=== PATIENT | female | born 1945 | race Caucasian/White ===

== ENCOUNTER → 2016-07-08 | Outpatient (REF) | payer MEDICARE ==
[~2016-07-08] MED LIST: /BISO10TA OR; /GLYB5TA; /PANT40TA PO; ALDA25TA2 OR; ASPI81TA85 PO; ATROVENT0.02% INH; BISO10TA2 OR; CARA1SUS PO; CIME400T PO; COLA50CA3 PO; COLC0.6T; COZA100T OR; DIGO0.126 OR; ECOT325T5 PO; ENDOCET; FERR140T PO; FURO20TA2; GLUC500T PO; HYZAAR PO; K-TA10TA OR; LANTUS SOLOSTAR SC; LASI80TA OR; LIDO5DIS; NEUR100C; NEUR300C; PLAV75TA2; POTA20PO4 PO; PRAD75CA3 PO; PRED5TAB OR; PREG50CA OR; ROSU10TA PO; SYNT25TA PO; TOPR100T; TYLE325T5 PO; VITA-121 PO; VITA100L PO; XOPE1.252 IN; ZEST20TA4
[2016-07-08 17:39] LABS: CALCIUM LEVEL 9.6 MG/DL (8.8-10.2); CREATININE FOR GFR 1.31 MG/DL (0.55-1.02); GLOMERULAR FILTRATION RATE 42.7 (>39); POTASSIUM SERUM 4.4 MEQ/L (3.5-5.1)
[2016-07-08 19:02] LABS: MEAN CORPUSCULAR HEMOGLOBIN 25.5 pg (27.0-33.0); MEAN CORPUSCULAR HGB CONC 29.8 g/dl (32.0-36.5); MEAN CORPUSCULAR VOLUME 85.7 fl (80.0-96.0); RED CELL DISTRIBUTION WIDTH 16.7 % (11.5-14.5)
== END ==
LOC: M SFHCCLAY 11:43
PROVIDERS: ATTEND Family Medicine
DX: I48.2 Chronic atrial fibrillation (principal); I50.20 Unspecified systolic (congestive) heart failure; Z95.1 Presence of aortocoronary bypass graft

== ENCOUNTER → 2016-07-14 | Outpatient (CLI) | payer MEDICARE ==
--- NOTE | 2016-07-14 14:26 | REP ---
CT LUMBAR SPINE WITHOUT CONTRAST: HISTORY: Spinal stenosis. There is no disc bugle or herniation at the L1-2 level. The L1 nerves exit the neural foramina without compression. A diffuse disc bulge is present at the L2-3 level. There is hypertrophy of the ligamenta flava and posterior articulating facets. These findings produce minimal central canal stenosis. The L2 nerves exit the neural foramina without compression. A diffuse disc bulge is present at the L3-4 level. There is hypertrophy of the ligamenta flava and posterior articulating facets. These findings produce mild central canal stenosis. The L3 nerves exit the neural foramina without compression. A diffuse disc bulge is present at the L4-5 level. There is hypertrophy of the ligamenta flava and posterior articulating facets. These findings produce mild central canal stenosis. The L4 nerves exit the neural foramina without compression. A diffuse disc bulge is present at the L5-S1 level. There is minimal compression of the thecal sac. There is hypertrophy of posterior articulating facets. The L5 nerves exit the neural foramina without compression. The L3-4 through L5-S1 intervertebral discs are decreased in height consistent with disc degeneration. There is no subluxation. IMPRESSION: 1. Minimal central canal stenosis at the L2-3 level secondary to disc bulge, ligamentous, and facet hypertrophy. 2. Mild central canal stenosis at the L3-4 and L4-5 level secondary to disc bulge, ligamentous, and facet hypertrophy. 3. Diffuse disc bulge at the L5-S1 level with minimal thecal sac compression. Signed by Johnny Landa MD 07/14/2016 02:35 P
== END ==
LOC: M RAD 12:44
PROVIDERS: ATTEND Family Medicine
DX: M48.06 Spinal stenosis, lumbar region (principal); M51.26 Other intervertebral disc displacement, lumbar region; M51.27 Other intervertebral disc displacement, lumbosacral region

== ENCOUNTER → 2017-01-15 | Outpatient (CLI) | payer MEDICARE ==
--- NOTE | 2017-01-15 12:27 | REP ---
CHEST, TWO VIEWS: HISTORY: Congestive heart failure. COMPARISON: 07/25/2013 An increase in interstitial markings is present in the lungs. The cardiac silhouette is enlarged. The pulmonary vasculature is prominent. Degenerative change is present in the thoracic spine. A cardiac pacemaker is present. IMPRESSION: Findings consistent with congestive heart failure.
== END ==
LOC: M CLY 11:43
PROVIDERS: ATTEND Family Medicine
DX: I50.20 Unspecified systolic (congestive) heart failure (principal)
CPT/HCPCS: 71020; 80048; 83880; 85027; G0463

== ENCOUNTER → 2017-01-15 | Outpatient (REF) | payer MEDICARE ==
[2017-01-15 17:34] LABS: CALCIUM LEVEL 9.3 MG/DL (8.8-10.2); CREATININE FOR GFR 1.43 MG/DL (0.55-1.02); GLOMERULAR FILTRATION RATE 38.6 (>39); POTASSIUM SERUM 4.6 MEQ/L (3.5-5.1)
[2017-01-15 17:40] LABS: MEAN CORPUSCULAR HEMOGLOBIN 30.3 pg (27.0-33.0); MEAN CORPUSCULAR HGB CONC 31.5 g/dl (32.0-36.5); MEAN CORPUSCULAR VOLUME 96.1 fl (80.0-96.0); RED CELL DISTRIBUTION WIDTH 15.8 % (11.5-14.5); WHITE BLOOD COUNT 5.8 K/mm3 (4.0-10.0)
== END ==
LOC: M SFHCCLAY 11:24
PROVIDERS: ATTEND Family Medicine
DX: I50.20 Unspecified systolic (congestive) heart failure (principal); R06.09 Other forms of dyspnea

== ENCOUNTER → 2017-04-17 | Outpatient (REF) | payer MEDICARE ==
[2017-04-17 16:20] LABS: MEAN CORPUSCULAR HEMOGLOBIN 29.6 pg (27.0-33.0); MEAN CORPUSCULAR HGB CONC 29.8 g/dl (32.0-36.5); MEAN CORPUSCULAR VOLUME 99.2 fl (80.0-96.0); PLATELET COUNT, AUTOMATED 238 10^3/uL (150-450); RED CELL DISTRIBUTION WIDTH 15.7 % (11.5-14.5); WHITE BLOOD COUNT 4.8 10^3/uL (4.0-10.0)
[2017-04-17 17:03] LABS: CALCIUM LEVEL 8.9 MG/DL (8.8-10.2); CREATININE FOR GFR 1.23 MG/DL (0.55-1.02); POTASSIUM SERUM 4.4 MEQ/L (3.5-5.1)
== END ==
LOC: M SFHCCLAY 13:02
PROVIDERS: ATTEND Family Medicine
DX: I50.20 Unspecified systolic (congestive) heart failure (principal); Z23 Encounter for immunization; Z95.1 Presence of aortocoronary bypass graft
CPT/HCPCS: 80048; 84443; 85027; 90662; 90732; 99497; G0008; G0009; G0463

== ENCOUNTER → 2017-06-10 | Outpatient (REF) | payer MEDICARE ==
[2017-06-10 17:33] LABS: FREE T4 1.09 NG/DL (0.76-1.46)
== END ==
LOC: M SFHCCLAY 11:37
DX: E03.9 Hypothyroidism, unspecified (principal)
CPT/HCPCS: 84443

== ENCOUNTER → 2017-07-29 | Outpatient (REF) | payer MEDICARE ==
[2017-07-30 12:11] LABS: HEMATOCRIT 31.8 % (36.0-47.0); HEMOGLOBIN 9.6 g/dl (12.0-16.0); MEAN CORPUSCULAR HEMOGLOBIN 29.8 pg (27.0-33.0); MEAN CORPUSCULAR HGB CONC 30.2 g/dl (32.0-36.5); MEAN CORPUSCULAR VOLUME 98.8 fl (80.0-96.0); PLATELET COUNT, AUTOMATED 221 10^3/uL (150-450); RED BLOOD COUNT 3.22 10^6/uL (4.00-5.40); RED CELL DISTRIBUTION WIDTH 17.2 % (11.5-14.5); WHITE BLOOD COUNT 5.9 10^3/uL (4.0-10.0)
[2017-07-30 12:17] LABS: ANION GAP 10 MEQ/L (8-16); BLOOD UREA NITROGEN 27 MG/DL (7-18); CALCIUM LEVEL 8.5 MG/DL (8.8-10.2); CARBON DIOXIDE LEVEL 22 MEQ/L (21-32); CHLORIDE LEVEL 112 MEQ/L (98-107); CREATININE FOR GFR 1.26 MG/DL (0.55-1.30); GLOMERULAR FILTRATION RATE 44.6 (>39); GLUCOSE, FASTING 121 MG/DL (70-100); POTASSIUM SERUM 4.3 MEQ/L (3.5-5.1); SODIUM LEVEL 144 MEQ/L (136-145)
== END ==
LOC: M SFHCCLAY 14:59
DX: K55.9 Vascular disorder of intestine, unspecified (principal)
CPT/HCPCS: 80048

== ENCOUNTER → 2017-08-18 | Outpatient (REF) | payer MEDICARE | LOC: M SFHCCLAY 15:38 | DX: R35.0 Frequency of micturition (principal) | CPT/HCPCS: 87088; 87186 ==

== ENCOUNTER → 2017-09-24 | Outpatient (REF) | payer MEDICARE ==
[2017-09-25 11:32] LABS: HEMATOCRIT 37.5 % (36.0-47.0); HEMOGLOBIN 11.4 g/dl (12.0-15.5); MEAN CORPUSCULAR HEMOGLOBIN 29.2 pg (27.0-33.0); MEAN CORPUSCULAR HGB CONC 30.4 g/dl (32.0-36.5); MEAN CORPUSCULAR VOLUME 96.2 fl (80.0-96.0); PLATELET COUNT, AUTOMATED 282 10^3/uL (150-450); RED CELL DISTRIBUTION WIDTH 18.3 % (11.5-14.5); WHITE BLOOD COUNT 4.5 10^3/uL (4.0-10.0)
[2017-09-25 12:08] LABS: ANION GAP 7 MEQ/L (8-16); BLOOD UREA NITROGEN 34 MG/DL (7-18); CALCIUM LEVEL 8.3 MG/DL (8.8-10.2); CARBON DIOXIDE LEVEL 27 MEQ/L (21-32); CHLORIDE LEVEL 108 MEQ/L (98-107); CREATININE FOR GFR 1.46 MG/DL (0.55-1.30); GLOMERULAR FILTRATION RATE 37.6 (>39); GLUCOSE, FASTING 116 MG/DL (70-100); SODIUM LEVEL 142 MEQ/L (136-145)
== END ==
LOC: M SFHCCLAY 14:38
DX: E11.21 Type 2 diabetes mellitus with diabetic nephropathy (principal); I50.20 Unspecified systolic (congestive) heart failure
CPT/HCPCS: 84443

== ENCOUNTER → 2017-12-22 | Outpatient (CLI) | payer MEDICARE | LOC: M CLY 15:55 | DX: I51.7 Cardiomegaly (principal); J90 Pleural effusion, not elsewhere classified; I70.0 Atherosclerosis of aorta; E03.9 Hypothyroidism, unspecified; Z95.0 Presence of cardiac pacemaker; I50.20 Unspecified systolic (congestive) heart failure; M81.0 Age-related osteoporosis without current pathological fracture | CPT/HCPCS: 71046; 84443 ==

== ENCOUNTER → 2017-12-22 | Outpatient (REF) | payer MEDICARE ==
[2017-12-23 11:47] LABS: HEMATOCRIT 40.4 % (36.0-47.0); HEMOGLOBIN 13.1 g/dl (12.0-15.5); MEAN CORPUSCULAR HEMOGLOBIN 31.8 pg (27.0-33.0); MEAN CORPUSCULAR HGB CONC 32.4 g/dl (32.0-36.5); MEAN CORPUSCULAR VOLUME 98.1 fl (80.0-96.0); PLATELET COUNT, AUTOMATED 242 10^3/uL (150-450); RED BLOOD COUNT 4.12 10^6/uL (4.00-5.40); RED CELL DISTRIBUTION WIDTH 16.1 % (11.5-14.5); WHITE BLOOD COUNT 4.8 10^3/uL (4.0-10.0)
[2017-12-23 12:16] LABS: TOTAL 25(OH) VITAMIN D 45.4 NG/ML (30.0-100.0)
[2017-12-23 12:52] LABS: ANION GAP 10 MEQ/L (8-16); BLOOD UREA NITROGEN 37 MG/DL (7-18); CALCIUM LEVEL 8.5 MG/DL (8.8-10.2); CARBON DIOXIDE LEVEL 26 MEQ/L (21-32); CHLORIDE LEVEL 106 MEQ/L (98-107); FREE T4 1.21 NG/DL (0.76-1.46); GLOMERULAR FILTRATION RATE 36.4 (>39); GLUCOSE, FASTING 114 MG/DL (70-100); POTASSIUM SERUM 4.6 MEQ/L (3.5-5.1); SODIUM LEVEL 142 MEQ/L (136-145)
== END ==
LOC: M SFHCCLAY 15:39
DX: E03.9 Hypothyroidism, unspecified (principal); I50.20 Unspecified systolic (congestive) heart failure; M81.0 Age-related osteoporosis without current pathological fracture
CPT/HCPCS: 84443

== ENCOUNTER → 2018-05-20 | Outpatient (REF) | payer MEDICARE ==
[2018-05-21 11:39] LABS: ANION GAP 7 MEQ/L (8-16); BLOOD UREA NITROGEN 22 MG/DL (7-18); CALCIUM LEVEL 8.5 MG/DL (8.8-10.2); CARBON DIOXIDE LEVEL 29 MEQ/L (21-32); CHLORIDE LEVEL 105 MEQ/L (98-107); CREATININE FOR GFR 0.96 MG/DL (0.55-1.30); GLOMERULAR FILTRATION RATE > 60.0 (>39); GLUCOSE, FASTING 131 MG/DL (70-100); SODIUM LEVEL 141 MEQ/L (136-145); URIC ACID 8.2 MG/DL (2.6-6.0)
== END ==
LOC: M SFHCCLAY 15:24
DX: I50.20 Unspecified systolic (congestive) heart failure (principal); M10.40 Other secondary gout, unspecified site
CPT/HCPCS: 84550

== ENCOUNTER → 2018-05-20 | Outpatient (CLI) | payer MEDICARE ==
--- NOTE | 2018-05-20 16:48 | REP ---
Chest two views HISTORY: Congestive heart failure Comparison: 12/22/2017 A minimal increase in interstitial markings is present in the lungs consistent with chronic interstitial change. A small left pleural effusion is present unchanged compared to the previous study. The cardiac silhouette is enlarged. The pulmonary vasculature is normal in appearance. The bony structure is intact. A cardiac pacemaker is present. IMPRESSION: 1. Chronic interstitial change. 2. Cardiomegaly. 3. Small left pleural effusion unchanged compared to the previous study.
== END ==
LOC: M CLY 15:48
PROVIDERS: ATTEND Family Medicine
DX: I51.7 Cardiomegaly (principal); J90 Pleural effusion, not elsewhere classified; I50.20 Unspecified systolic (congestive) heart failure; Z95.0 Presence of cardiac pacemaker
CPT/HCPCS: 71046; 80048; 84550; 90682; G0008; G0463

== ENCOUNTER → 2018-08-24 | Outpatient (REF) | payer MEDICARE ==
[~2018-08-24] MED LIST changes: -/BISO10TA OR; -/GLYB5TA; -/PANT40TA PO; +CRES10TA32 PO; +GLYB1TAB29; +METO-745; +PROT1TAB2 PO; -ROSU10TA PO; -TOPR100T; +ZEBE1TAB OR
[2018-08-25 12:02] LABS: HEMOGLOBIN 10.3 g/dl (12.0-15.5); MEAN CORPUSCULAR HEMOGLOBIN 30.9 pg (27.0-33.0); MEAN CORPUSCULAR HGB CONC 31.2 g/dl (32.0-36.5); MEAN CORPUSCULAR VOLUME 99.1 fl (80.0-96.0); PLATELET COUNT, AUTOMATED 199 10^3/uL (150-450); RED BLOOD COUNT 3.33 10^6/uL (4.00-5.40); WHITE BLOOD COUNT 5.8 10^3/uL (4.0-10.0)
[2018-08-25 12:39] LABS: CALCIUM LEVEL 8.7 MG/DL (8.8-10.2); CREATININE FOR GFR 1.35 MG/DL (0.55-1.30); DIGOXIN LEVEL 0.9 NG/ML (0.5-2.0); FREE T4 1.2 NG/DL (0.76-1.46); POTASSIUM SERUM 4.4 MEQ/L (3.5-5.1); THYROID STIMULATING HORMONE 1.73 uIU/ML (0.358-3.740); URIC ACID 6.6 MG/DL (2.6-6.0)
== END ==
LOC: M SFHCCLAY 15:26
PROVIDERS: ATTEND Family Medicine
DX: E03.9 Hypothyroidism, unspecified (principal); E11.9 Type 2 diabetes mellitus without complications; E79.0 Hyperuricemia without signs of inflammatory arthritis and tophaceous disease; I50.20 Unspecified systolic (congestive) heart failure
CPT/HCPCS: 80048; 80162; 84439; 84443; 84550; 85027; G0463

== ENCOUNTER → 2018-11-17 | Outpatient (REF) | payer MEDICARE ==
[2018-11-18 12:13] LABS: HEMATOCRIT 40.8 % (36.0-47.0); HEMOGLOBIN 12.7 g/dl (12.0-15.5); MEAN CORPUSCULAR HGB CONC 31.1 g/dl (32.0-36.5); MEAN CORPUSCULAR VOLUME 102.8 fl (80.0-96.0); PLATELET COUNT, AUTOMATED 187 10^3/uL (150-450); RED BLOOD COUNT 3.97 10^6/uL (4.00-5.40); WHITE BLOOD COUNT 6.7 10^3/uL (4.0-10.0)
[2018-11-18 12:30] LABS: FREE T4 1.26 NG/DL (0.76-1.46); THYROID STIMULATING HORMONE 1.28 uIU/ML (0.358-3.740)
== END ==
LOC: M SFHCCLAY 14:01
PROVIDERS: ATTEND Family Medicine
DX: I50.20 Unspecified systolic (congestive) heart failure (principal); E03.9 Hypothyroidism, unspecified

== ENCOUNTER → 2018-11-17 | Outpatient (REF) | payer MEDICARE ==
[2018-11-18 12:11] LABS: HEMATOCRIT 40.5 % (36.0-47.0); HEMOGLOBIN 12.7 g/dl (12.0-15.5); MEAN CORPUSCULAR HEMOGLOBIN 32.3 pg (27.0-33.0); MEAN CORPUSCULAR HGB CONC 31.4 g/dl (32.0-36.5); MEAN CORPUSCULAR VOLUME 103.1 fl (80.0-96.0); PLATELET COUNT, AUTOMATED 199 10^3/uL (150-450); RED BLOOD COUNT 3.93 10^6/uL (4.00-5.40); WHITE BLOOD COUNT 6.6 10^3/uL (4.0-10.0)
[2018-11-18 12:33] LABS: CALCIUM LEVEL 9.2 MG/DL (8.8-10.2); CREATININE FOR GFR 1.42 MG/DL (0.55-1.30); DIGOXIN LEVEL 0.9 NG/ML (0.5-2.0); GLOMERULAR FILTRATION RATE 38.7 (>39); POTASSIUM SERUM 4.3 MEQ/L (3.5-5.1)
== END ==
LOC: M LABDRAWC 11:06
PROVIDERS: ATTEND Internal Medicine Cardiovascular Disease
DX: I50.9 Heart failure, unspecified (principal); I25.10 Atherosclerotic heart disease of native coronary artery without angina pectoris

== ENCOUNTER → 2018-11-17 | Outpatient (CLI) | payer MEDICARE ==
--- NOTE | 2018-11-17 14:57 | REP ---
AP/LATERAL THORACIC SPINE, TWO VIEWS: HISTORY: Dorsalgia. There is no acute fracture or subluxation. There is an old compression fracture of the L1 vertebral body with moderate height loss. There is loss of height of several mid and lower thoracic intervertebral discs, consistent with disc degeneration. Anterior osteophytes are present in the mid and lower thoracic spine. The bony structure is osteopenic. IMPRESSION: Degenerative change, as described above.
--- NOTE | 2018-11-17 15:02 | REP ---
PARTIAL LUMBAR SPINE, THREE VIEWS: HISTORY: Dorsalgia. There is no acute fracture or subluxation. There is an old compression fracture of the L1 vertebral body with moderate height loss. There is very minimal retropulsion. The lumbar intervertebral discs are decreased in height consistent with disc degeneration. Osteophytes are present on L1 through L5. The bony structure is osteopenic. IMPRESSION: Degenerative change as described above.
== END ==
LOC: M CLY 14:11
PROVIDERS: ATTEND Family Medicine
DX: M51.36 Other intervertebral disc degeneration, lumbar region (principal); M51.34 Other intervertebral disc degeneration, thoracic region; M25.78 Osteophyte, vertebrae; M85.88 Other specified disorders of bone density and structure, other site; M54.9 Dorsalgia, unspecified; E03.9 Hypothyroidism, unspecified

== ENCOUNTER → 2019-05-03 | Outpatient (CLI) | payer MEDICARE ==
--- NOTE | 2019-05-03 16:24 | REP ---
Clinical: Congestive heart failure. Technique: PA and lateral. Comparison: 05/20/2018. Findings: Cardiomegaly is appreciated with evidence for prior CABG and pacemaker. Lung [place] demonstrate chronic stable changes. No consolidation. No effusion. No pneumothorax. Skeletal structures demonstrate age-related osteopenia and degenerative change. Impression: Stable cardiomegaly and chronic changes. No acute cardiopulmonary process appreciated. Electronically Signed by Jesse Gonzalez MD 05/03/2019 04:16 P
== END ==
LOC: M CLY 16:00
PROVIDERS: ATTEND Family Medicine
DX: I51.7 Cardiomegaly (principal); I50.20 Unspecified systolic (congestive) heart failure; Z95.0 Presence of cardiac pacemaker
CPT/HCPCS: 71046; G0463

== ENCOUNTER 2019-06-09 13:27 | Inpatient (IN) | payer MEDICARE ==
[~2019-06-09] VITALS: Ht 152.4 cm; Wt 58.1 kg
[2019-06-09] MEDS ORDERED: VALS40TA9 PO (14:32)
[2019-06-09] MEDS ORDERED: TORS10TA3 PO (14:32)
[2019-06-09] MEDS ORDERED: ALLO100T PO (14:32)
[2019-06-09] MEDS ORDERED: ATOR1TAB21 PO (14:32)
[2019-06-09] MEDS ORDERED: XARE15TA PO (14:32)
[2019-06-09 15:22] LABS: BASO % 0.6 % (0.0-1.0); EOS # 0.1 10^3/uL (0.0-0.5); EOS % 1.8 % (0.0-3.0); HEMATOCRIT 38.8 % (36.0-47.0); HEMOGLOBIN 11.9 g/dl (12.0-15.5); LYMPH # 1.2 10^3/uL (1.5-5.0); LYMPH % 25.2 % (24.0-44.0); MEAN CORPUSCULAR HEMOGLOBIN 31.9 pg (27.0-33.0); MEAN CORPUSCULAR HGB CONC 30.7 g/dl (32.0-36.5); MONO # 0.6 10^3/uL (0.0-0.8); MONO % 12.5 % (0.0-5.0); NEUTROPHILS # 2.9 10^3/uL (1.5-8.5); NEUTROPHILS % 59.7 % (36.0-66.0); PLATELET COUNT, AUTOMATED 179 10^3/uL (150-450); RED BLOOD COUNT 3.73 10^6/uL (4.00-5.40); WHITE BLOOD COUNT 4.9 10^3/uL (4.0-10.0)
[2019-06-09 15:36] LABS: ALBUMIN 3.9 GM/DL (3.2-5.2); BILIRUBIN,DIRECT 0.3 MG/DL (0.0-0.2); BILIRUBIN,TOTAL 0.8 MG/DL (0.2-1.0); CALCIUM LEVEL 8.8 MG/DL (8.8-10.2); CREATININE FOR GFR 1.31 MG/DL (0.55-1.30); GLOMERULAR FILTRATION RATE 42.5 (>39); POTASSIUM SERUM 3.9 MEQ/L (3.5-5.1); TOTAL PROTEIN 6.8 GM/DL (6.4-8.2)
[2019-06-09 15:45] LABS: INR 1.67; PROTHROMBIN TIME 19.4 SECONDS (11.8-14.0)
[2019-06-09] MEDS ORDERED: NS 500 ML IV ONE (15:45)
[2019-06-09 15:46] LABS: PARTIAL THROMBOPLASTIN TIME 48.2 SECONDS (25.0-38.4)
[2019-06-09] MEDS ORDERED: methylPREDNISolone INJ 125 MG/2 ML VIAL (J2930) IV ONE (17:00)
[2019-06-09] MEDS ORDERED: diphenhydrAMINE INJ 50MG/ML VIAL (J1200) IV ONE (17:00)
[2019-06-09] MEDS ORDERED: ISOVUE-370 76% 100ML VIAL (Q9967) As Ordered ONE (17:59)
--- NOTE | 2019-06-09 19:00 | REPVR ---
PROCEDURE INFORMATION: Exam: CT Abdomen And Pelvis With Contrast Exam date and time: 06/09/2019 4:56 PM Age: 73 years old Clinical indication: Other: Bloody stool; Abdominal pain; Other: Lower; Additional info: Abd pain with rectal bleeding TECHNIQUE: Imaging protocol: Computed tomography of the abdomen and pelvis with intravenous contrast. Radiation optimization: All CT scans at this facility use at least one of these dose optimization techniques: automated exposure control; mA and/or kV adjustment per patient size (includes targeted exams where dose is matched to clinical indication); or iterative reconstruction. Contrast material: ISOVUE 370; Contrast volume: 100 ml; Contrast route: IV; COMPARISON: SPINE LUMBOSACRAL PARTIAL 11/17/2018 2:19 PM FINDINGS: Tubes, catheters and devices: AICD. Lungs: Mild patchy groundglass opacity in the lower lobes. Mild dependent left lower lobe atelectasis. Noncalcified 4 mm right middle lobe pulmonary nodule (series 201 image 8). Mild interstitial pulmonary edema. Pleural space: Moderate left pleural effusion. Trace right pleural effusion. Heart: Cardiomegaly. Liver: Normal. No mass. Gallbladder and bile ducts: There has been a cholecystectomy. Pancreas: Normal. No ductal dilation. Spleen: Normal. No splenomegaly. Adrenals: Normal. No mass. Kidneys and ureters: Normal. No hydronephrosis. Stomach and bowel: Postsurgical change of the stomach. Colonic diverticulosis. Mild circumferential wall thickening of the entire descending colon and the proximal sigmoid colon. No bowel obstruction. Postsurgical change of the small bowel. Appendix: The appendix is not definitively identified. There are no secondary CT findings to suggest the presence of appendicitis. Intraperitoneal space: Mild ascites. Vasculature: Hepatic venous reflux, suggestive of right-sided cardiac insufficiency. Advanced atherosclerotic changes. Lymph nodes: Unremarkable. No enlarged lymph nodes. Bladder: Unremarkable as visualized. Reproductive: Unremarkable as visualized. Bones/joints: Chronic appearing severe L1 vertebral body compression fracture. Median sternotomy wires. Degenerative change of the spine. Bilateral hip joint DJD. Left femoral head bone islands. Soft tissues: Postsurgical change of the ventral abdominal wall. Small fat and fluid containing right ventral upper abdominal wall hernia. Moderate anasarca. IMPRESSION: 1. Mild ascites and moderate anasarca. 2. Moderate left and trace right pleural effusions. 3. Interstitial pulmonary edema. Mild patchy groundglass opacity in the lung bases, most likely due to edema. 4. Cardiomegaly and evidence of right-sided cardiac insufficiency. 5. Acute mild regional colitis. 6. Colonic diverticulosis. 7. Noncalcified 4 mm right middle lobe pulmonary nodule. Recommend comparison with any prior CT examinations that are available. If none are available, recommend followup according to Fleischner criteria. 8. Small right ventral upper abdominal wall hernia. Fleischner society recommendations for followup and management of pulmonary nodules in adults detected incidentally on screening CT (2017): Less than or equal to 6 mm (solitary or multiple): Low risk patients- no followup needed. High risk patients- optional CT in 12 months. 6-8 mm nodule (solitary): Low-risk patients- CT at 6-[address] at 18-24 months. High risk patients- CT at 6-12 months, then CT at 18-24 months. 6-8 mm nodule (multiple): Low-risk patients- CT at 3-[address] at 18-24 months. High risk patients- CT at 3-6 months, then CT at 18-24 months. >8 mm (solitary): Low-risk patients- consider CT, PET/CT, or tissue sampling at 3 months. High-risk patients- same as for low-risk patients. >8mm (multiple): Low-risk patients - CT at 3-6 months, then at 18-24 months. High-risk patients - same as for low risk patients. Electronically signed by: Justyna Morin On 06/09/2019 19:00:26 PM
--- NOTE | 2019-06-09 19:59 | HPEPDOC ---
[facility] Medical History & Physical Date of Admission Jun 09, 2019 Date of Service: Jun 09, 2019 Primary Care Physician: Liu Vallecillo MD Attending Physician: Talon Vazquez MD History and Physical TIME OF SERVICE: 8:40 PM CHIEF COMPLAINT: Blood in stools HISTORY OF PRESENT ILLNESS: This is a 73-year-old female who was sent from Dr. Moon's office for evaluation of loose stools with blood for about 2 weeks. Other associated symptoms include worsening of her chronic shortness of breath with exertion, and 9/10 in severity, relapsing and remitting, sharp, diffuse abdominal pain that is worse after eating. She cannot identify any factors that alleviate abdominal pain. Additionally, she feels like she is retaining fluid in her abdomen. She denies eating any new foods, eating a lot of salt, and eating a lot of sugar. She missed her dose of Lasix earlier on today, while in the ER. Per discussion with the ER provider, hemoccult was positive; however map dropped from 80-70, she is not tachycardic, her hemoglobin is 11.9 down from a baseline of around 12.7, while CT of the abdomen showed acute colitis. REVIEW OF SYSTEMS: 12 point review of systems negative except as listed in HPI PAST MEDICAL/ SURGICAL HISTORY: CAD/ inferior wall FL complicated by cardiac arrest / Status post triple bypass. Atrial fibrillation. Gastric bypass. Chronic systolic CHF with EF of 35% / Status post placement of pacemaker with defibrillator Pre-DM/ DM 2 Chronic hypertension Dyslipidemia Fibromyalgia Polymyalgia rheumatica GERD Gout Osteoporosis / chronic L1 vertebral compression fracture Hypothyroidism Asthma ? Status post Bilateral cataract resection Status post Gastric ulcer repair Status post partial colectomy for management of strangulated hernia. Status post cholecystectomy. Status post multiple hernia repairs. SOCIAL HISTORY: She does not smoke. She lives with her FAMILY HISTORY: CAD Esophageal Cancer ALLERGIES: Please see below. HOME MEDICATIONS: Please see below. PHYSICAL EXAMINATION: VITAL SIGNS: Please see below. GEN: well-nourished / well developed/ NAD INTEGUMENT: not flushed/ not jaundice HEENT: NCAT / lips acyanotic /mucus membranes moist and pink CVS: RRR/she has a systolic murmur/radial pulses intact / no lower extremity edema LUNGS: no coughing / she has crackles at the lung base ABDOMEN: Contour obese / bowel sounds are present / the abdomen is tympanic on percussion, soft & not tender with palpation MSK/EXTREMITIES: range of motion intact in all 4 extremities NEURO: CN 2-12 are grossly intact / speech is not dysarthric PSYCH: alert and oriented to person place and time/ able to understand and follow all commands LABORATORY DATA: See below. IMAGING: CT of the abdomen and pelvis " IMPRESSION: 1. Mild ascites and moderate anasarca. 2. Moderate left and trace right pleural effusions. 3. Interstitial pulmonary edema. Mild patchy groundglass opacity in the lung bases, most likely due to edema. 4. Cardiomegaly and evidence of right-sided cardiac insufficiency. 5. Acute mild regional colitis. 6. Colonic diverticulosis. 7. Noncalcified 4 mm right middle lobe pulmonary nodule. Recommend comparison with any prior CT examinations that are available. If none are available, recommend followup according to Fleischner criteria. 8. Small right ventral upper abdominal wall hernia MICROBIOLOGY: Please see below. ASSESSMENT: Ms. Montejo is a 73 old with a past medical history of chronic CAD, coronary bypass, atrial fibrillation, gastric bypass, chronic systolic CHF, type 2 diabetes, hypertension, dyslipidemia, polymyalgia rheumatica, gout, osteoporosis, hypothyroidism, and asthma who will be admitted for management of acute anemia secondary to lower GI bleed. PLAN: 1. Acute anemia secondary to lower GI Bleed CT of abdomen showed acute colitis. Other possible causes of lower GI bleed include diverticulosis, angiodysplasia's (most common cause of small-bowel bleeding inolderpatients), AVM &, hemorrh oids. Her map is above 65 and she is not tachycardic Plan: admit to PCU / orthostats / nothing by mouth with IV fluids pending general surgery consult for colonoscopy / type & screen, f/u serial Hg / hold oral iron, aspirin and Xarelto / will not start antibiotics because she does not have SIRS criteria 2. Acute on chronic systolic congestive heart failure She is partially decompensated. She has an ICD His partially decompensated. Plan: Give 1 dose of IV Lasix/resume torsemide and bisoprolol 3. Chronic CAD / Dyslipidemia Status post inferior wall FL, sudden cardiac arrest and triple bypass. She has a pacemaker Plan: Resume statin and beta todd. Hold aspirin 4. Atrial fibrillation. Plan: Hold rivaroxaban. Resume digoxin 3. Prediabetes? Diabetes. A1c is 5.8 2016 She's not on any medications. Plan: Follow-up Accu-Cheks while nothing by mouth 4. Chronic hypertension Plan: Resume bisprolol and valsartan 6. GERD Plan: Resume pantoprazole 7. Gout Plan: Resume allopurinol 8. Hypothyroidism Plan: Resume levothyroxine 7. Pulmonary nodule. Plan: Follow-up with PCP for risk stratification DVT PROPHYLAXIS: SCDs because of acute anemia and lower GI bleed DISPOSITION: Likely home after more than 2 midnight's stay Vital Signs Vital Signs Date Time Temp Pulse Resp B/P (MAP) Pulse Ox O2 Delivery O2 Flow Rate FiO2 06/09/19 19:40 98.2 58 16 98/56 (70) 94 Room Air Laboratory Data Labs 24H Laboratory Tests 2 06/09/19 15:00: Prothrombin Time 19.4H, Prothromb Time International Ratio 1.67, Activated Partial Thromboplast Time 48.2H, Anion Gap 7L, Glomerular Filtration Rate 42.5, Calcium Level 8.8, Total Bilirubin 0.8, Direct Bilirubin 0.3H, Aspartate Amino Transf (AST/SGOT) 29, Alanine Aminotransferase (ALT/SGPT) 24, Alkaline Phosphatase 89, Total Protein 6.8, Albumin 3.9, Albumin/Globulin Ratio 1.34, Lipase 59L 06/09/19 15:01: Immature Granulocyte % (Auto) 0.2, Neutrophils (%) (Auto) 59.7, Lymphocytes (%) (Auto) 25.2, Monocytes (%) (Auto) 12.5H, Eosinophils (%) (Auto) 1.8, Basophils (%) (Auto) 0.6, Neutrophils # (Auto) 2.9, Lymphocytes # (Auto) 1.2L, Monocytes # (Auto) 0.6, Eosinophils # (Auto) 0.1, Basophils # (Auto) 0.0, Nucleated Red Blood Cells % (auto) 0.0 06/09/19 16:00: Urine Color YELLOW, Urine Appearance CLEAR, Urine pH 5.0, Urine Specific [place] 1.008, Urine Protein NEGATIVE, Urine Glucose (UA) NEGATIVE, Urine Ketones NEGATIVE, Urine Blood NEGATIVE, Urine Nitrite NEGATIVE, Urine Bilirubin NEGATIVE, Urine Urobilinogen 0.2, Urine Leukocyte Esterase NEGATIVE, Urine WBC (Auto) 1, Urine RBC (Auto) 1, Urine Hyaline Casts (Auto) 5, Urine Bacteria (Auto) NEGATIVE, Urine Squamous Epithelial Cells 0, Urine Mucus (Auto) SMALL, Urine Sperm (Auto) CBC/BMP Laboratory Tests 06/09/19 15:00 06/09/19 15:01 Home Medications Scheduled Allopurinol (Allopurinol) 100 Mg Tablet, 100 MG PO QHS Aspirin (Aspirin EC) 81 Mg Tablet.dr, 81 MG PO DAILY Atorvastatin Calcium (Atorvastatin Calcium) 20 Mg Tablet, 20 MG PO QHS Bisoprolol Fumarate (Bisoprolol Fumarate) 5 Mg Tablet, 5 MG PO BID Calcium Carbonate (Calcium) 600 Mg Tablet, 1,200 MG PO DAILY WITH LUNCH Cholecalciferol (Vitamin D3) (Vitamin D3) 1,000 Unit Tablet, 5,000 UNIT PO DAILY Cyanocobalamin (Vitamin B-12) (Vitamin B-12) 500 Mcg Tablet, 500 MCG PO DAILY Digoxin (Digoxin) 125 Mcg Tablet, 125 MCG PO QHS Ferrous Sulfate (Ferrous Sulfate) 325 Mg Tablet, 325 MG PO DAILY Levothyroxine Sodium (Synthroid) 112 Mcg Tablet, 112 MCG PO DAILY BEFORE BREAKFAST Magnesium (Magnesium) 250 Mg Tablet, 250 MG PO DAILY Pantoprazole Sodium (Pantoprazole Sodium) 40 Mg Tablet.dr, 40 MG PO BID Polyethylene Glycol 3350 (Miralax) 119 Gm Powder, 17 GM PO DAILY DILUTE IN WATER OR JUICE IN THE MORNING Rivaroxaban (Xarelto) 15 Mg Tablet, 15 MG PO QPM WITH SUPPER Torsemide (Torsemide) 10 Mg Tablet, 20 MG PO BID 0800, 1400 Valsartan (Valsartan) 40 Mg Tablet, 40 MG PO QHS Scheduled PRN Acetaminophen (Acetaminophen) 325 Mg Tablet, 650 MG PO Q4H PRN for PAIN Allergies Coded Allergies: iodine (Verified Allergy, Intermediate, red and swell, 06/09/19) shellfish derived (Verified Allergy, Intermediate, rash and swell, 06/09/19) A-FIB/CHADSVASC A-FIB History Current/History of A-Fib/PAF?: Yes Current PO Anticoag Therapy: No Treatment Treatment ordered: Holding Other (bleeding / anemia) SWEETIE RIZVI MD Jun 09, 2019 19:59
[2019-06-09] MEDS ORDERED: MAALOX 30 ML SUSP *UDC PO PRN (20:00)
[2019-06-09] MEDS ORDERED: SODIUM CHLORIDE 0.9% 1000ML IV SCH (20:00)
[2019-06-09] MEDS ORDERED: ASPI81TA26 PO (20:44)
[2019-06-09] MEDS ORDERED: FERR325T18 PO (20:44)
[2019-06-09] MEDS ORDERED: VITA100066 PO (20:44)
[2019-06-09] MEDS ORDERED: ACET1TAB55 PO (20:44)
[2019-06-09] MEDS ORDERED: SYNT112T2 PO (20:44)
[2019-06-09] MEDS ORDERED: BISO5TAB9 PO (20:44)
[2019-06-09] MEDS ORDERED: VITA500T40 PO (20:44)
[2019-06-09] MEDS ORDERED: PANT40TA3 PO (20:44)
[2019-06-09] MEDS ORDERED: DIGO0.123 PO (20:44)
[2019-06-09] MEDS ORDERED: MIRA3350 PO (20:45)
[2019-06-09] MEDS ORDERED: CALC600T60 PO (20:45)
[2019-06-09] MEDS ORDERED: HM M250T PO (20:45)
[2019-06-09] MEDS ORDERED: D5W/0.9% SODIUM CHLORIDE 1,000 ML IV SCH (21:00)
[2019-06-09] MEDS ORDERED: VALSARTAN 40MG TABLET (DIOVAN) PO SCH (21:00)
[2019-06-09] MEDS ORDERED: PINK BISMUTH SUSP 524MG/30ML ORAL SYRINGE PO PRN (21:15)
[2019-06-09] MEDS ORDERED: FUROSEMIDE 40 MG/4 ML VIAL (J1940) IV ONE (22:00)
[2019-06-09] MEDS: PANTOPRAZOLE 40MG TAB (PROTONIX) PO SCH (23:47)
[2019-06-09] MEDS: allopurinoL 100 MG TAB PO SCH (23:47)
[2019-06-09] MEDS: ATORVASTATIN 20 MG TAB PO SCH (23:47)
[2019-06-09] MEDS: bisoproloL fumarate 5 MG TAB PO SCH (23:48)
[2019-06-09] MEDS: DIGOXIN 0.125 MG TAB PO SCH (23:49)
[2019-06-10] VITALS (7 sets, daily range): BP systolic 101–129; BP diastolic 60–86
[2019-06-10 05:57] LABS: HEMATOCRIT 37.3 % (36.0-47.0); HEMOGLOBIN 11.6 g/dl (12.0-15.5); MEAN CORPUSCULAR HEMOGLOBIN 31.8 pg (27.0-33.0); MEAN CORPUSCULAR HGB CONC 31.1 g/dl (32.0-36.5); MEAN CORPUSCULAR VOLUME 102.2 fl (80.0-96.0); PLATELET COUNT, AUTOMATED 169 10^3/uL (150-450); RED BLOOD COUNT 3.65 10^6/uL (4.00-5.40); WHITE BLOOD COUNT 4.4 10^3/uL (4.0-10.0)
[2019-06-10 06:12] LABS: CALCIUM LEVEL 8.5 MG/DL (8.8-10.2); CREATININE FOR GFR 1.28 MG/DL (0.55-1.30); GLOMERULAR FILTRATION RATE 43.6 (>39); MAGNESIUM LEVEL 2.1 MG/DL (1.8-2.4); POTASSIUM SERUM 4.1 MEQ/L (3.5-5.1)
[2019-06-10] MEDS: ACETAMINOPHEN TAB 650MG DOSE (2X325MG) PO PRN ×2 (06:23→13:35)
[2019-06-10] MEDS: LEVOTHYROXINE 112MCG TABLET (0.112MG) PO SCH (06:23)
[2019-06-10] MEDS ORDERED: FERROUS SULFATE 325MG TAB PO SCH (09:00)
[2019-06-10] MEDS: PANTOPRAZOLE 40MG TAB (PROTONIX) PO SCH ×2 (09:43→21:45)
[2019-06-10] MEDS: TORSEMIDE 10 MG TABLET PO SCH ×2 (09:43→17:39)
[2019-06-10] MEDS: CYANOCOBALAMIN 500 MCG TAB PO SCH (09:44)
[2019-06-10] MEDS: bisoproloL fumarate 5 MG TAB PO SCH ×2 (09:44→21:46)
--- NOTE | 2019-06-10 12:16 | IPNPDOC ---
Subjective Date Seen The patient was seen on 06/10/19. Subjective Chief Complaint/HPI No further BMs since admission. Abd pain improving. Constitutional: Denies: Chills, Fever Pulmonary: Denies: Dyspnea, Cough Cardiovascular: Denies: Chest Pain, Palpitations, Orthopnea Gastrointestinal: Reports: Abdominal Pain; Denies: Nausea, Vomiting, Diarrhea, Constipation Objective Physical Examination General Exam: Positive: Alert, No Acute Distress Chest Exam: Positive: Clear to auscultation; Negative: Rales, Rhonchi, Wheezing Heart Exam: Positive: Rate Normal, Regular Rhythm Abdomen Exam: Positive: Normal bowel sounds, Soft, Tenderness (mild LLQ tenderness without guard) Extremity Exam: Negative: Edema Assessment /Plan Problems (1) Lower GI bleed Status: Acute Response to Treatment: Improving Problem Text: No further bleeding since admission. Hgb stable Xeralto & ASA on hold Dr. Mitchell consulted by hospitalist - He does not plan to scope her today CT showed mild regional colitis - Not currently on abx - may be viral. Order GI panel Advance diet to clears. Monitor for further bleeding Of note: Last EGD/Colonoscpy done by 2014 - Had hemorrhoids and Diverticulosis Ct abd/pelvis: 1. Mild ascites and moderate anasarca. 2. Moderate left and trace right pleural effusions. 3. Interstitial pulmonary edema. Mild patchy groundglass opacity in the lung bases, most likely due to edema. 4. Cardiomegaly and evidence of right-sided cardiac insufficiency. 5. Acute mild regional colitis. 6. Colonic diverticulosis. 7. Noncalcified 4 mm right middle lobe pulmonary nodule. Recommend comparison with any prior CT examinations that are available. If none are available, recommend followup according to Fleischner criteria. 8. Small right ventral upper abdominal wall hernia. (2) Acute on chronic systolic (congestive) heart failure Status: Acute Problem Text: EF 35% per last Echo Decompensated clinically with pulm edema and ascites on CT. IVF Boluses given in ER for hypoptension, then IV Lasix x 1 given Sats in 90s. Feels less Dyspneic currently Order salt and FR and monitor I & Os Currently getting IVF at 60cc/hour AND Usual dose or Torsemide 20 BID and Valsartan 40 QD D/C IVF Hold Valsartan. Give additional Lasix if needed (3) Colitis Status: Acute Problem Text: see above (4) Pulmonary edema Status: Acute Problem Text: see above (5) Ascites Problem Text: No known h/o cirrhosis - will need further wkup (6) Atrial fibrillation Status: Chronic Response to Treatment: Stable Problem Text: Rate controlle don Zebeta and Dig Xarelto on hold per LGI bleed (7) CAD (coronary artery disease) Status: Chronic Response to Treatment: Stable Problem Text: s/p CT and CABG and AICD ASA on hold COnt statin, CORINA/BB (8) Pulmonary nodule Status: Chronic Problem Text: will need f/u CT as outpatient Plan/VTE VTE Prophylaxis Ordered?: No VTE Exclusion Pharmacological: Active Bleeding Plan Therapy: PT Family Medicine Attending Note: I saw and examined Ms. Montejo, discussed with JOSIE Saleh. Agree with her note as documented. Her hemoglobin levels have remained stable. It's not clear whether this is a simple viral colitis or something more ominous. We have consulted Dr. Mitchell for consideration for colonoscopy. At this point the decision will be up to him as to whether we do watchful waiting or move forward with the procedure. The patient is currently on a clear liquid diet until we know that a endoscopic procedure is not in the near future. 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) VS, I&O, 24H, Fishbone Vital Signs/I&O Vital Signs Date Time Temp Pulse Resp B/P (MAP) Pulse Ox O2 Delivery O2 Flow Rate FiO2 06/10/19 09:44 79 114/70 06/10/19 08:00 96.8 20 91 Room Air 06/10/19 05:00 3.0 I&O- Last 24 Hours up to 6 AM 06/10/19 06:00 Intake Total [id number] ml Output Total 150 ml Balance [id number] ml Laboratory Data 24H LABS Laboratory Tests 2 06/09/19 15:00: Prothrombin Time 19.4H, Prothromb Time International Ratio 1.67, Activated Partial Thromboplast Time 48.2H, Anion Gap 7L, Glomerular Filtration Rate 42.5, Calcium Level 8.8, Total Bilirubin 0.8, Direct Bilirubin 0.3H, Aspartate Amino Transf (AST/SGOT) 29, Alanine Aminotransferase (ALT/SGPT) 24, Alkaline Phosphatase 89, Total Protein 6.8, Albumin 3.9, Albumin/Globulin Ratio 1.34, Lipase 59L 06/09/19 15:01: Immature Granulocyte % (Auto) 0.2, Neutrophils (%) (Auto) 59.7, Lymphocytes (%) (Auto) 25.2, Monocytes (%) (Auto) 12.5H, Eosinophils (%) (Auto) 1.8, Basophils (%) (Auto) 0.6, Neutrophils # (Auto) 2.9, Lymphocytes # (Auto) 1.2L, Monocytes # (Auto) 0.6, Eosinophils # (Auto) 0.1, Basophils # (Auto) 0.0, Nucleated Red Blood Cells % (auto) 0.0 06/09/19 16:00: Urine Color YELLOW, Urine Appearance CLEAR, Urine pH 5.0, Urine Specific [place] 1.008, Urine Protein NEGATIVE, Urine Glucose (UA) NEGATIVE, Urine Ketones NEGATIVE, Urine Blood NEGATIVE, Urine Nitrite NEGATIVE, Urine Bilirubin NEGATIVE, Urine Urobilinogen 0.2, Urine Leukocyte Esterase NEGATIVE, Urine WBC (Auto) 1, Urine RBC (Auto) 1, Urine Hyaline Casts (Auto) 5, Urine Bacteria (Auto) NEGATIVE, Urine Squamous Epithelial Cells 0, Urine Mucus (Auto) SMALL, Urine Sperm (Auto) 06/10/19 05:41: Anion Gap 10, Glomerular Filtration Rate 43.6, Calcium Level 8.5L, Nucleated Red Blood Cells % (auto) 0.0, Magnesium Level 2.1 CBC/BMP Laboratory Tests 06/09/19 15:00 06/09/19 15:01 06/10/19 03:14 06/10/19 05:41 06/10/19 09:50 EVELYNE OLSEN PA-C Jun 10, 2019 12:16 Allan Killian MD Jun 10, 2019 15:02
--- NOTE | 2019-06-10 14:52 | ECGEPIP ---
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
[2019-06-10] MEDS: allopurinoL 100 MG TAB PO SCH (21:45)
[2019-06-10] MEDS: ATORVASTATIN 20 MG TAB PO SCH (21:45)
[2019-06-10] MEDS: DIGOXIN 0.125 MG TAB PO SCH (21:47)
--- NOTE | 2019-06-10 23:56 | CR ---
DATE OF CONSULTATION: 06/10/2019 REASON FOR CONSULTATION: Rectal bleeding. HISTORY OF PRESENT ILLNESS: The patient is a pleasant 73-year-old woman who was admitted by the hospitalist to the [facility] practice service on June 09, 2019 for evaluation and treatment for some blood in her stool. 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 She saw the PA in Dr. Moon office and apparently complained of some worsening shortness of breath, as well as some abdominal discomfort. She reported some dark-colored stools, as well as passage of a small amount of red blood per rectum. Because of this, she was referred to the emergency department where she was found to have a hemoccult positive rectal exam. The admission note reports that her baseline hematocrit is approximately 12.7, and it was 11.9 in the emergency department. She had a CT scan of the abdomen that reportedly was read as showing thickening in the descending colon and proximal sigmoid, suggestive of some focal colitis. She was admitted and has been undergoing evaluation with serial blood work. I was consulted to consider possible endoscopy or other recommendations. MEDICATIONS: At the time of admission are multiple and include: valsartan, torsemide, rivaroxiban, MiraLax, Protonix, magnesium, levothyroxine, ferrous sulfate, digoxin, vitamin B12, vitamin D3, calcium carbonate, bisoprolol, atorvastatin aspirin, allopurinol and acetaminophen. ALLERGIES: Allergies are reported IODINE and SHELLFISH. SURGICAL HISTORY: Significant for a coronary artery bypass grafting. She has undergone a gastric bypass as well. She has had bilateral cataract extractions. She has had a partial colectomy for management of a strangulated hernia approximately 3 years ago. She has had multiple hernia repairs and has also had a cholecystectomy. MEDICAL ISSUES: Include her coronary artery disease. She has had sudden cardiac from which she was resuscitated two or three times by her report. She has a history of atrial fibrillation. She has chronic systolic congestive heart failure with an ejection fraction in the 20-30% range. She has prediabetes and chronic hypertension, as well as dyslipidemia, fibromyalgia, polymyalgia rheumatica, gastroesophageal reflux, gout, osteoporosis and hypothyroidism. FAMILY HISTORY: Significant for coronary artery disease, and she tells me that her mother had colon cancer. SOCIAL HISTORY: The patient does not smoke and lives with her . REVIEW OF SYSTEMS: Reveals no history of current chest pain or shortness of breath. She does have a limited exercise tolerance, and reports that she uses a wheelchair to get around whenever she is out of the house. She has no history of seizure or stroke. She denies any history of deep vein thrombosis (DVT) or pulmonary embolus. PHYSICAL EXAM: Reveals a very pleasant woman sitting up in the bed. She does look older than her stated age and somewhat frail. Skin: Warm and dry. Sclerae are anicteric. Mucous membranes are moist. Heart exam shows a regular rhythm. The lungs are generally clear to auscultation bilaterally. The abdomen is mildly protuberant. She has several scars in the upper abdomen. The abdominal wall was quite soft and thin. The umbilicus appears to have been obliterated or resected. Palpation reveals a generally soft abdomen without any palpable mass, and there is no particular focal tenderness. Laboratory studies from today show a white count of 4, hemoglobin of 12, hematocrit of 37 and a platelet count of 169,000. Her hemoglobin has ranged between 10.8 and 11.9 since admission. Her chemistry profile shows a stable BUN and creatinine and her glucose today was 214. CT scan from the time of admission was reviewed. The report indicated the presence of some mild ascites with some anasarca. She had some pleural effusion noted primarily on the left. The patient had cardiomegaly with a suggestion of some right-sided cardiac insufficiency. Her colon thickening, as noted previously, suggested colitis. IMPRESSION: The patient has had somewhat darkened stool prior to admission and had also noticed a small amount of red blood. The patient has multiple medical problems, most importantly her coronary artery disease with her chronic systolic heart failure and her atrial fibrillation. She remains on Xarelto for anticoagulation. PLAN: The patient and I discussed the possibility of colonoscopy to assess the source of her bleeding. I note that she had undergone an esophagogastroduodenoscopy (EGD) and colonoscopy by Dr. Chavira in 2015. He described diverticulosis as well as some hemorrhoids. She has not been found in the past to have polyps or any other lesions other than as noted. Since admission to the hospital, she has not noticed any further bleeding, and her hematocrit has remained stable. She reports that she is feeling very tired and does not really wish to have a colonoscopy. Given her medical issues, she certainly is at an increased risk of problems from attempting a bowel prep and then the sedated procedure itself. I think that her bleeding is likely from hemorrhoids or other sources that would not be dangerous. After some discussion, we agreed that we will not proceed with a colonoscopy during this hospital stay. I think it would be reasonable for her to be discharged home once her other medical issues are optimized. She can certainly follow up with her primary physician to determine if he thinks it would be prudent to proceed with a colonoscopy electively on an outpatient basis.
[2019-06-11] VITALS: BP 99/63
[2019-06-11 04:00] VITALS: BP 115/79
[2019-06-11 06:00] LABS: HEMATOCRIT 34.7 % (36.0-47.0); HEMOGLOBIN 10.8 g/dl (12.0-15.5); MEAN CORPUSCULAR HEMOGLOBIN 31.9 pg (27.0-33.0); MEAN CORPUSCULAR HGB CONC 31.1 g/dl (32.0-36.5); MEAN CORPUSCULAR VOLUME 102.4 fl (80.0-96.0); PLATELET COUNT, AUTOMATED 168 10^3/uL (150-450); RED BLOOD COUNT 3.39 10^6/uL (4.00-5.40); WHITE BLOOD COUNT 5.3 10^3/uL (4.0-10.0)
[2019-06-11 06:31] LABS: CALCIUM LEVEL 8.3 MG/DL (8.8-10.2); CREATININE FOR GFR 1.26 MG/DL (0.55-1.30); GLOMERULAR FILTRATION RATE 44.4 (>39); POTASSIUM SERUM 3.6 MEQ/L (3.5-5.1)
[2019-06-11] MEDS: LEVOTHYROXINE 112MCG TABLET (0.112MG) PO SCH (07:01)
[2019-06-11 08:00] VITALS: BP 111/78
--- NOTE | 2019-06-11 08:26 | IPN ---
DATE OF SERVICE: 06/11/2019 Juanita is seen in progressive care unit (PCU). She is short of breath today. She still has oxygen on, and she says she is dyspneic with exertion and feels that she has no "fluid problems." She has a history of congestive heart failure with a decreased ejection fraction. Apparently, ejection fraction (EF) is 35%. She is followed by [facility] and, in fact, was transferred from their office to the hospital to be admitted for her gastrointestinal (GI) bleed. GI bleed has abated with discontinuation of her anticoagulation for now, but she is now short of breath. She did get quite a bit of intravenous (IV) fluids on admission. I do not know how much, as they have documented 115 liters intake on 06/09/2019, which is hopefully a typographical error. PHYSICAL EXAMINATION: She is alert and conversant. She has jugular venous distention (JVD). She is dyspneic with prolonged conversation. Her lungs have expiratory wheezes. Heart: Regular rate and rhythm. 2/6 systolic ejection murmur. Abdomen soft. Ascites is present. She has trace peripheral edema. LABORATORIES: Sodium 141, potassium 3.6, BUN 24, creatinine 1.2, glucose 123. White count 5.3, hemoglobin 10.8, platelets 168. IMPRESSION: 1. Lower gastrointestinal bleed. She has been seen by surgery. No endoscopy is planned. Her Xarelto is currently on hold, and this will need to be restarted due to her atrial fibrillation. 2. Congestive heart failure, decompensated by whatever load of IV fluid she actually received. Therapy is limited by her hypotension. I will consult [facility]. 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 She is well known to that group. Her valsartan is currently on hold. 3. Atrial fibrillation. Rate is controlled with digoxin and Zebeta. Anticoagulant is currently on hold. 4. Hypothyroidism. Stable on current dose of levothyroxine.
[2019-06-11] MEDS ORDERED: FLUBLOK(EGG FREE)(QUAD)INFLUENZA VACC 0.5ML SYRINGE (90682)18YRS&OLDER IM ONE (09:00)
[2019-06-11] MEDS ORDERED: PREVNAR 13 VACCINE SYRINGE (CPT CODE:90670) IM ONE (09:00)
[2019-06-11] MEDS: PANTOPRAZOLE 40MG TAB (PROTONIX) PO SCH ×2 (09:06→20:50)
[2019-06-11] MEDS: CYANOCOBALAMIN 500 MCG TAB PO SCH (09:06)
[2019-06-11] MEDS: bisoproloL fumarate 5 MG TAB PO SCH (09:07)
[2019-06-11 12:00] VITALS: BP 107/75
[2019-06-11] MEDS: FUROSEMIDE 40 MG/4 ML VIAL (J1940) IV SCH ×2 (12:36→18:00)
[2019-06-11 16:00] VITALS: BP 116/73
[2019-06-11 20:00] VITALS: BP 131/83
[2019-06-11] MEDS: ATORVASTATIN 20 MG TAB PO SCH (20:49)
[2019-06-11] MEDS: allopurinoL 100 MG TAB PO SCH (20:50)
[2019-06-11] MEDS: BISOPROLOL FUM 2.5 MG PER 1/2TAB PO SCH (20:50)
[2019-06-11] MEDS: DIGOXIN 0.125 MG TAB PO SCH (20:50)
[2019-06-11] MEDS: APIXABAN 5 MG TAB (ELIQUIS) PO SCH (20:50)
[2019-06-12] VITALS: BP 131/84
[2019-06-12] MEDS: FUROSEMIDE 40 MG/4 ML VIAL (J1940) IV SCH ×5 (01:11→23:56)
[2019-06-12 04:00] VITALS: BP 138/67
[2019-06-12 05:45] LABS: HEMATOCRIT 35.4 % (36.0-47.0); HEMOGLOBIN 11.1 g/dl (12.0-15.5); MEAN CORPUSCULAR HEMOGLOBIN 31.4 pg (27.0-33.0); MEAN CORPUSCULAR HGB CONC 31.4 g/dl (32.0-36.5); PLATELET COUNT, AUTOMATED 162 10^3/uL (150-450); RED BLOOD COUNT 3.54 10^6/uL (4.00-5.40); WHITE BLOOD COUNT 4.8 10^3/uL (4.0-10.0)
[2019-06-12] MEDS: LEVOTHYROXINE 112MCG TABLET (0.112MG) PO SCH (06:04)
[2019-06-12 06:06] LABS: CALCIUM LEVEL 8.3 MG/DL (8.8-10.2); CREATININE FOR GFR 1.14 MG/DL (0.55-1.30); GLOMERULAR FILTRATION RATE 49.9 (>39); POTASSIUM SERUM 3.5 MEQ/L (3.5-5.1)
[2019-06-12 08:00] VITALS: BP 105/58
[2019-06-12] MEDS: BISOPROLOL FUM 2.5 MG PER 1/2TAB PO SCH ×2 (10:19→20:42)
[2019-06-12] MEDS: APIXABAN 5 MG TAB (ELIQUIS) PO SCH ×2 (10:19→20:41)
[2019-06-12] MEDS: CYANOCOBALAMIN 500 MCG TAB PO SCH (10:19)
[2019-06-12] MEDS: PANTOPRAZOLE 40MG TAB (PROTONIX) PO SCH ×2 (10:19→20:41)
--- NOTE | 2019-06-12 11:02 | CR ---
DATE OF CONSULTATION: 06/11/2019 REFERRING PROVIDER: Dr. Talon Vazquez. Reason for the consultation: Congestive heart failure, atrial fibrillation. HISTORY OF PRESENT ILLNESS: 73-year-old woman well known by the office and she usually sees Dr. Moon, for her underlying cardiac condition. Her primary physician is Dr. Liu Vallecillo in [place], [place]. Lately, she has not been feeling well and she was recently seen at the office by Dr. Moon after her recent visit to the emergency room at [facility] with what seems to be an infectious process. This time, she came here to the ER because she was passing black tarry stools. Her hemoglobin/hematocrit on admission was 11.9 and 38.8. She was admitted for further management and monitoring. Her Xarelto was discontinued as well as her angiotensin receptor todd (ARB). She was evaluated by gastroenterology (GI) and for now, conservative management was recorded because she has not been having any more blood per her stools and her hemoglobin and hematocrit remained stable. She has been having shortness of breath with activities even with moving from her bed to go to the bathroom. Cardiology consult was called. She is not being treated with IV Lasix. When I saw Mrs. Juanita Montejo, she was sitting up in bed in no acute distress. She complains of some discomfort at the base of her chest bilaterally and increases with deep breathing. She denies any palpitations. She denies any pedal edema. She has no focal manifestation. She denies any fever. She has occasional abdominal discomfort. PAST MEDICAL HISTORY: She has a past medical history positive for coronary artery disease with prior inferior wall myocardial infarction, percutaneous transluminal coronary angioplasty (PTCA)/coronary artery bypass graft, ischemic cardiomyopathy for which and automatic implantable cardioverter defibrillator (AICD) was initially implanted then upgraded on 02/28/2016 with a biventricular pacemaker AICD. She has a history of multiple defibrillator/AICD charges in the setting of sepsis. She also has a history of diabetes mellitus, hyperlipidemia, arthritis and polymyalgia rheumatica, morbid obesity for which she had bariatric surgery, obstructive sleep apnea (FITO) for which she was on CPAP but this resolved after bariatric surgery. Last assessment of her left ventricular ejection fraction (LVEF) was estimated between 20 and 30% and her echocardiogram revealed moderately severe mitral regurgitation. She does have a history of atrial fibrillation and has been on chronic anticoagulation therapy was Xarelto. There is no known history of cerebrovascular accident (CVA)/transient ischemic attack (TIA). When she came to the hospital, her BUN and creatinine was 24 and 1.3 but this has improved to 24 and 1.26. MEDICATIONS AT HOME: - allopurinol 100 mg by mouth daily - aspirin 81 mg by mouth daily - atorvastatin 20 mg by mouth daily - bisoprolol 5 mg by mouth twice a day - calcium carbonate 600 mg by mouth daily - vitamin D3 5000 units by mouth daily - vitamin B12 100 mcg by mouth daily - digoxin 125 by mouth daily - iron supplement 325 mg by mouth daily - levothyroxine 112 mcg by mouth daily - pantoprazole 40 mg by mouth twice a day - MiraLAX as needed for constipation - [id number] mg by mouth daily - torsemide 20 mg by mouth twice a day - valsartan 40 mg by mouth nightly CURRENT MEDICATIONS: - Lasix 60 mg IV every 6 hours - vitamin B12 100 mg by mouth daily - levothyroxine 112 mcg by mouth daily - Pepto Bismol as needed - allopurinol 100 mg by mouth nightly - atorvastatin 20 mg by mouth daily - digoxin 125 mcg by mouth daily - pantoprazole 40 mg by mouth twice a day - Tylenol 650 mg every 4 hours as needed for mild pain or fever - Mylanta 30 mL by mouth daily as needed for dyspepsia. FAMILY HISTORY: Noncontributory. SOCIAL HISTORY: The patient lives with her and she does not smoke or abuse alcohol. ALLERGIES: She has allergy to IODINE and shellfish. OBJECTIVE: The patient is a FULL CODE. PHYSICAL EXAMINATION: The patient is alert and oriented, in no acute distress at rest. Her vital signs, when I saw her, reveal blood pressure of 107/75 with a pulse of 80, respiration 18-29 and a maximum temperature was 97.8 degrees Fahrenheit with oxygen saturation of 98% on 2 liters cannula. Examination of the head: Atraumatic. Neck is supple with extended . Lungs: Revealed minimal crackles at the bases. Heart examination revealed a regular heart sounds without gallops. The point of maximum impulse (PMI) is displaced inferiorly and laterally. There is no rub. There is a systolic murmur grade 2/6 at the lower sternal border and at the apex some minimal radiation to the axilla. Abdomen is soft and bowel sounds active. Extremities revealed trace bilateral upper edema. Neurologic examination grossly negative for focal deficit. LABS: BMP done today revealed a sodium of 141, potassium 3.8, chloride 110, CO2 24, BUN 24, creatinine 1.26. GFR 44.4, fasting glucose 123 and calcium 8.3. Pro-BNP today was 12,287. Liver enzymes on admission revealed a total bilirubin of 0.8, AST 29, ALT 24, alkaline phosphatase 89, total protein 6.8m albumin 3.89. Serum magnesium on 06/10/2019 was 2.1. CBC on 06/11/2019 revealed a WBC of 5.3, hemoglobin 10.8, hematocrit 34.7 and platelet 168,000 with a MCV of 102.4. PT/INR were 19.4 and 1.67 respectively with a PTT of 48.2. Urinalysis was recently normal. CT of the abdomen and pelvis on admission revealed mild ascites and moderate anasarca, right pleural effusion, interstitial pulmonary edema with a ground-glass opacity. Cardiomegaly, colonic diverticulosis and a noncalcified 4 mm right middle lobe pulmonary nodule. IMPRESSION: 1. Decompensated congestive heart failure, acute on chronic secondary to left ventricular systolic dysfunction. The patient was seen earlier today and in the evening, I talked to her and the and she was feeling better after good response with her IV Lasix. She will continue the same. I have decreased her beta-todd so she can be diuresed as needed. If her blood pressure remains stable, she will be given a trial of Xarelto. Will continue to stay away from the valsartan. Will need to monitor closely her BUN and creatinine and serum potassium, particularly while on the digoxin. She has an AICD and biventricular pacemaker for prevention of sudden cardiac . 2. [place] fibrillation: She was on Xarelto and she was admitted with GI bleed. It seems that she had a colonoscopy done about 3 days ago and no polyps were found at that time. She was evaluated by GI and conservative management is recommended. There is no plan to proceed with a colonoscopy at this present time and I will restart her on her anticoagulation therapy but this time with Eliquis because of a lower risk for bleeding. 3. History of coronary artery disease and this has been stable. 4. Hypothyroidism, on supplement. 5. History of hyperlipidemia, on a statin. 6. History of diabetes mellitus, resolved with bariatric surgery. It was a pleasure to participate the care of Mrs. Juanita Montejo for her underlying cardiac condition, I will monitor along with you. Case was discussed with attending rounding. Case also was discussed with the patient as well as her .
[2019-06-12] MEDS ORDERED: SLF 3 ML SYR IV PRN (11:30)
[2019-06-12 12:00] VITALS: BP 104/65
[2019-06-12] MEDS: ONDANSETRON 4MG/2ML VIAL (J2405) IV PRN ×2 (12:12→18:13)
[2019-06-12] MEDS: SLF 3 ML SYR IV SCH ×2 (12:12→20:43)
[2019-06-12] MEDS: POTASSIUM CHLORIDE 10 MEQ SR TABLET PO SCH ×2 (12:13→20:41)
--- NOTE | 2019-06-12 14:12 | IPN ---
DATE: 06/12/2019 Juanita had a good diuresis. She has put out about 3.5 liters since we initiated diuresis yesterday. She is less short of breath. She had some nausea last night. She was seen in consultation by Dr. King. I am waiting for his note. We did discuss the case. Overall, she feels better but still more dyspneic than typical. PHYSICAL EXAMINATION: Afebrile. Blood pressure 105/58, pulse 80, respiratory rate 24, 98% saturation on 3 liters. General Appearance: Alert, conversant in no distress. She appears mildly nauseated over breakfast. Lungs clear. Heart regular rhythm. Abdomen soft. Nontender. Trace peripheral edema. I did not see any jugular venous distention (JVD) today. LABS: White count 4, hemoglobin 11.1, platelets 162. Sodium 143, potassium 3.5, BUN 19, creatinine 1.1, glucose 129. BNP yesterday was12,000. IMPRESSION: 1. Lower gastrointestinal (GI) bleed with acute blood loss anemia. Rectal bleeding has stopped of the Xarelto. This will eventually need to be restarted for atrial fibrillation but that is going to be deferred to outpatient setting. She was seen by surgery. No endoscopy is planned. It was felt to have been due to lower causes. 2. Congestive heart failure: Decompensated probably from IV fluids. Responding well to diuresis. 3. Atrial fibrillation: Her rate is controlled with digoxin and Zebeta. Anticoagulants is on hold. 4. Hypothyroidism: Stable on current dose of levothyroxine. 5. Hypokalemia: Supplemental potassium has been given. Probably will not need this on discharge as I expect this is from the diuresis we initiated. Possible discharge tomorrow.
[2019-06-12 16:00] VITALS: BP 99/59
[2019-06-12 20:00] VITALS: BP 94/60
[2019-06-12] MEDS: ATORVASTATIN 20 MG TAB PO SCH (20:41)
[2019-06-12] MEDS: allopurinoL 100 MG TAB PO SCH (20:41)
[2019-06-12] MEDS: DIGOXIN 0.125 MG TAB PO SCH (20:42)
[2019-06-13] VITALS: BP 100/72
[2019-06-13 04:00] VITALS: BP 98/62
[2019-06-13] MEDS: ONDANSETRON 4MG/2ML VIAL (J2405) IV PRN (05:19)
[2019-06-13] MEDS: LEVOTHYROXINE 112MCG TABLET (0.112MG) PO SCH (05:23)
[2019-06-13] MEDS: FUROSEMIDE 40 MG/4 ML VIAL (J1940) IV SCH ×3 (05:23→17:19)
[2019-06-13] MEDS: SLF 3 ML SYR IV SCH ×3 (05:23→21:51)
[2019-06-13 06:09] LABS: HEMATOCRIT 37.7 % (36.0-47.0); HEMOGLOBIN 11.4 g/dl (12.0-15.5); MEAN CORPUSCULAR HEMOGLOBIN 31.1 pg (27.0-33.0); MEAN CORPUSCULAR HGB CONC 30.2 g/dl (32.0-36.5); MEAN CORPUSCULAR VOLUME 102.7 fl (80.0-96.0); PLATELET COUNT, AUTOMATED 156 10^3/uL (150-450); RED BLOOD COUNT 3.67 10^6/uL (4.00-5.40); WHITE BLOOD COUNT 3.9 10^3/uL (4.0-10.0)
[2019-06-13 06:32] LABS: CALCIUM LEVEL 8.4 MG/DL (8.8-10.2); CREATININE FOR GFR 1.13 MG/DL (0.55-1.30); GLOMERULAR FILTRATION RATE 50.4 (>39); POTASSIUM SERUM 3.9 MEQ/L (3.5-5.1)
--- NOTE | 2019-06-13 07:49 | IPN ---
DATE OF SERVICE: 06/12/2019 Mrs. Juanita Montejo was seen earlier this morning, she was sitting in her room in no acute distress at rest. She stated that the pleuritic chest pain she was having yesterday is (0:27). This morning, she complains of dyspepsia. She denies any chest pain. She continues to have shortness of breath with activities, relief with rest. Her pedal edema has improved significantly. She was seen yesterday because of decompensated heart failure while in the hospital. She was started on IV Lasix and she has responded significantly. Her torsemide is on hold. She was initially admitted with black tarry stools and she was seen by GI and conservative management was recommended. The Xarelto was discontinued and she was restarted yesterday on the Eliquis. Her beta-todd, the Zebeta, was decreased because of low blood pressure. PHYSICAL EXAMINATION: The patient is alert and oriented, in no acute distress at rest. Her vital signs earlier this morning when I saw reveal a blood pressure of 105/60 with a pulse of 80, respirations 20 and a maximum temperature was 97.1 degrees Fahrenheit with an oxygen saturation of 98% on 3 liters nasal cannula. She had a negative fluid balance of 1.1 liters for 06/12/2019. Examination of the Head: Atraumatic. Neck is supple. No carotid bruits appreciated. Lungs revealed minimal crackles at the bases, but no wheezing. Heart examination revealed regular heart sounds without gallops. The PMI is displaced inferiorly and laterally. There is no rub. Abdomen: Soft. Extremities: Revealed no significant pedal edema. Neurological examination is negative for focal deficit. LABORATORY DATA: CBC revealed a WBC of 4.8, hemoglobin 11.1, hematocrit 35.4 and platelets 162,000. BMP revealed a sodium of 143, potassium 3.5, chloride 108, CO2 25, BUN 19, creatinine 1.14, GFR 49.9, fasting glucose 129 and calcium 8.3. TELEMETRY: Revealed ventricular pacemaker activity and isolated PVCs. IMPRESSION: Status post decompensated congestive failure secondary to left ventricular systolic dysfunction due to ischemic cardiomyopathy. The patient has responded to the IV Lasix and will continue same for now. Will need to monitor closely the BUN, creatinine and serum potassium. Her underlying CAD has been stable. She may be a good candidate for Entresto in view of her symptoms. I have decreased her beta-todd and if her blood pressure remains stable, this can be tried starting 06/13/2019. Prior to hospitalization, she was on a small dose of valsartan at 40 mg by mouth daily. She has an AICD/biventricular pacemaker for prevention of sudden cardiac and for her heart failure. Regarding her atrial fibrillation, she was started back on anticoagulation therapy, but this time with Eliquis. There is no immediate plan to proceed with a colonoscopy. She is now on a lower dose of her beta-todd and she will need to be monitored.
[2019-06-13 08:00] VITALS: BP 112/66
--- NOTE | 2019-06-13 09:27 | IPN ---
CARDIOLOGY PROGRESS NOTE DATE: 06/13/2019 Ms. Montejo is examined at bedside in the progressive care unit (PCU). She is feeling much better today and has gradually been improving since her hospitalization. She still is experiencing shortness of breath and fatigue with ambulation, continues to work with physical therapy. Otherwise, is tolerating all medications well. Denies any continued melena or hematochezia since switching over from Xarelto to Eliquis. Her hemoglobin remains stable at around 11 and she has not yet required any transfusion. Heart rate and blood pressure are otherwise doing well with some borderline soft blood pressure, but that seems to be her baseline and she is maintaining her mean arterial pressure (MAP) above 65. PHYSICAL EXAMINATION: VITALS: Temperature 98.5, pulse 80, respirations 19, blood pressure 112/66, MAP of 81, pulse oximetry 97% with 3 liters nasal cannula. She reportedly diuresed 4 liters yesterday with a net negative of 2142. As of this morning, she is net negative of 1875. Her weight is 57.6 kilograms, which is improved from 63.8 kilograms on admission. She is resting comfortably in bed, in no acute distress, fully conversant. Head is normocephalic, atraumatic. Neck is supple, elevated jugular venous pressure (JVP). Lungs are clear bilaterally without any wheezing, rhonchi or rales. Heart rate is controlled, rhythm is irregular. She has a localized grade 2 systolic murmur heard best in the left axilla. No clicks or gallops. Abdomen is soft, nontender with normal active bowel sounds. No lower extremity edema. Radial pulses are 2+ bilaterally. No focal deficits. LABORATORIES: WBC 3.9, hemoglobin and hematocrit 11.4/37.7, platelets 156. Sodium and potassium 142/3.9, BUN and creatinine 18 and 1.13. ASSESSMENT/PLAN: Ms. Montejo is a 73-year-old female with extensive past medical history, including a history of ischemic cardiomyopathy with automatic implantable cardioverter-defibrillator (AICD)/biventricular pacemaker in place, low ejection fraction (EF) of 20-30% with moderate to severe mitral regurgitation, currently in decompensated congestive heart failure (CHF). She also has chronic atrial fibrillation, recently switched from Xarelto to Eliquis given her melanotic episode, and a history of bariatric surgery with peptic ulcer disease, with successful weight loss thereafter. She is overall diuresing well with a reassuring drop in her weight. Continue strict intake and output and daily fluid restrictions. Her renal function and electrolytes are doing well. Continue diuresing with monitoring of her blood pressures. Zebeta and Eliquis are on board. Fortunately, her blood levels have been stable thus far and she has not required any transfusions. Entresto remains an option to be considered when she follows up outpatient in the clinic. At this point, she does not appear healthy enough for discharge as she is experiencing fatigue and shortness of breath with ambulation. Encourage working with physical therapy. From a cardiac standpoint, no medication changes are made today. We will continue to follow along. HAILY
--- NOTE | 2019-06-13 09:28 | IPNPDOC ---
Subjective Date Seen The patient was seen on 06/13/19. Subjective Chief Complaint/HPI GIB Events since last encounter Continues to diurese. BP improved with adjustment of rate controlling and anti- hypertensive meds. Cardiology recommending 1 more day of monitoring. Constitutional: Denies: Chills, Fever, Night Sweats Pulmonary: Denies: Dyspnea, Cough Cardiovascular: Denies: Chest Pain, Palpitations, Orthopnea, Paroxysmal Noc. Dyspnea, Lt Headedness Gastrointestinal: Denies: Nausea, Vomiting, Abdominal Pain, Diarrhea, Con stipation, Melena Psych: Reports: Mood Normal; Denies: Depression, Memory Issues Objective Physical Examination General Exam: Positive: Alert, No Acute Distress Chest Exam: Positive: Clear to auscultation; Negative: Rales, Rhonchi, Wheezing Heart Exam: Positive: Rate Normal, Regular Rhythm Abdomen Exam: Positive: Normal bowel sounds, Soft; Negative: Tenderness Extremity Exam: Negative: Edema Assessment /Plan Problems (1) Acute on chronic systolic (congestive) heart failure Status: Acute Response to Treatment: Improving Problem Text: 06/13/18: continues to diurese and show improvement. Dyspnea is near baseline per patient report, doubt BP would support Entresto, but should corey; therefore, + corey 12.5, check HSE EF 35% per last Echo (2) Lower GI bleed Status: Acute Response to Treatment: Improving Problem Text: Patient declined colonoscopy due to cardiac status and opting for no intervention if an adverse finding was made. Resumed Eliquis in last 48 hts. no signs of bleeding No further bleeding since admission. Hgb stable Xeralto & ASA on hold Dr. Mitchell consulted by hospitalist - He does not plan to scope her today CT showed mild regional colitis - Not currently on abx - may be viral. Order GI panel Advance diet to clears. Monitor for further bleeding Of note: Last EGD/Colonoscpy done by 2014 - Had hemorrhoids and Diverticulosis Ct abd/pelvis: 1. Mild ascites and moderate anasarca. 2. Moderate left and trace right pleural effusions. 3. Interstitial pulmonary edema. Mild patchy groundglass opacity in the lung bases, most likely due to edema. 4. Cardiomegaly and evidence of right-sided cardiac insufficiency. 5. Acute mild regional colitis. 6. Colonic diverticulosis. 7. Noncalcified 4 mm right middle lobe pulmonary nodule. Recommend comparison with any prior CT examinations that are available. If none are available, recommend followup according to Fleischner criteria. 8. Small right ventral upper abdominal wall hernia. (3) Colitis Status: Resolved Problem Text: see above (4) Pulmonary edema Status: Resolved Problem Text: see above (5) Ascites Problem Text: No known h/o cirrhosis - will need further wkup (6) Atrial fibrillation Status: Chronic Response to Treatment: Stable Problem Text: Rate controlle don Zebeta and Dig Xarelto on hold per LGI bleed (7) CAD (coronary artery disease) Status: Chronic Response to Treatment: Stable Problem Text: s/p CO and CABG and AICD ASA on hold COnt statin, CORINA/BB (8) Pulmonary nodule Status: Chronic Problem Text: will need f/u CT as outpatient Plan/VTE VTE Prophylaxis Ordered?: No VTE Exclusion Pharmacological: Active Bleeding Plan Therapy: PT VS, I&O, 24H, Fishbone Vital Signs/I&O Vital Signs Date Time Temp Pulse Resp B/P (MAP) Pulse Ox O2 Delivery O2 Flow Rate FiO2 06/13/19 08:00 98.5 80 19 112/66 (81) 97 Nasal Cannula 3.0 I&O- Last 24 Hours up to 6 AM 06/13/19 05:59 Intake Total 1858 ml Output Total 3625 ml Balance -1767 ml Laboratory Data 24H LABS Laboratory Tests 2 06/13/19 05:55: Nucleated Red Blood Cells % (auto) 0.0, Anion Gap 7L, Glomerular Filtration Rate 50.4, Calcium Level 8.4L CBC/BMP Laboratory Tests 06/13/19 05:55 Microbiology Microbiology 06/10/19 Gastrointestinal Tract Panel (PCR) - Final, Complete Xiao Dee Jun 13, 2019 09:28 oTm Sanchez M.D. Jun 13, 2019 17:28
[2019-06-13] MEDS: APIXABAN 5 MG TAB (ELIQUIS) PO SCH ×2 (09:51→21:56)
[2019-06-13] MEDS: PANTOPRAZOLE 40MG TAB (PROTONIX) PO SCH ×2 (09:51→21:50)
[2019-06-13] MEDS: CYANOCOBALAMIN 500 MCG TAB PO SCH (09:51)
[2019-06-13] MEDS: POTASSIUM CHLORIDE 10 MEQ SR TABLET PO SCH ×2 (09:51→21:49)
[2019-06-13] MEDS: BISOPROLOL FUM 2.5 MG PER 1/2TAB PO SCH ×2 (09:51→21:50)
[2019-06-13 12:00] VITALS: BP 108/66
[2019-06-13 16:00] VITALS: BP 106/66
[2019-06-13 20:00] VITALS: BP 102/64
[2019-06-13] MEDS: DIGOXIN 0.125 MG TAB PO SCH (21:50)
[2019-06-13] MEDS: allopurinoL 100 MG TAB PO SCH (21:50)
[2019-06-13] MEDS: ATORVASTATIN 20 MG TAB PO SCH (21:50)
[2019-06-14] VITALS: BP_SYST 104; BP_SYST 90; BP_DIAS 60
[2019-06-14] MEDS: FUROSEMIDE 40 MG/4 ML VIAL (J1940) IV SCH ×4 (00:14→18:00)
[2019-06-14 04:00] VITALS: BP 100/60
[2019-06-14] MEDS: LEVOTHYROXINE 112MCG TABLET (0.112MG) PO SCH (05:05)
[2019-06-14] MEDS: ONDANSETRON 4MG/2ML VIAL (J2405) IV PRN ×2 (05:05→20:19)
[2019-06-14] MEDS: SLF 3 ML SYR IV SCH ×3 (05:06→21:10)
[2019-06-14 05:22] LABS: BASO % 0.5 % (0.0-1.0); EOS # 0.1 10^3/uL (0.0-0.5); EOS % 3.3 % (0.0-3.0); HEMATOCRIT 40.7 % (36.0-47.0); LYMPH # 0.8 10^3/uL (1.5-5.0); LYMPH % 21.8 % (24.0-44.0); MEAN CORPUSCULAR HEMOGLOBIN 30.8 pg (27.0-33.0); MEAN CORPUSCULAR HGB CONC 29.5 g/dl (32.0-36.5); MEAN CORPUSCULAR VOLUME 104.4 fl (80.0-96.0); MONO # 0.5 10^3/uL (0.0-0.8); MONO % 13.4 % (0.0-5.0); NEUTROPHILS # 2.2 10^3/uL (1.5-8.5); NEUTROPHILS % 60.7 % (36.0-66.0); PLATELET COUNT, AUTOMATED 173 10^3/uL (150-450); WHITE BLOOD COUNT 3.7 10^3/uL (4.0-10.0)
[2019-06-14 06:00] LABS: ALBUMIN 3.4 GM/DL (3.2-5.2); BILIRUBIN,TOTAL 1.2 MG/DL (0.2-1.0); CALCIUM LEVEL 9.2 MG/DL (8.8-10.2); CREATININE FOR GFR 1.27 MG/DL (0.55-1.30); MAGNESIUM LEVEL 2.2 MG/DL (1.8-2.4); POTASSIUM SERUM 4.7 MEQ/L (3.5-5.1); TOTAL PROTEIN 6.8 GM/DL (6.4-8.2)
[2019-06-14 08:00] VITALS: BP 113/67
[2019-06-14] MEDS: SPIRONOLACTONE 12.5MG PER 1/2 TABLET PO SCH (09:23)
[2019-06-14] MEDS: APIXABAN 5 MG TAB (ELIQUIS) PO SCH ×2 (09:23→20:20)
[2019-06-14] MEDS: BISOPROLOL FUM 2.5 MG PER 1/2TAB PO SCH ×2 (09:24→20:20)
[2019-06-14] MEDS: PANTOPRAZOLE 40MG TAB (PROTONIX) PO SCH ×2 (09:24→20:21)
[2019-06-14] MEDS: CYANOCOBALAMIN 500 MCG TAB PO SCH (09:24)
[2019-06-14] MEDS: POTASSIUM CHLORIDE 10 MEQ SR TABLET PO SCH ×2 (09:25→20:20)
--- NOTE | 2019-06-14 10:03 | IPN ---
CARDIOLOGY PROGRESS NOTE DATE: 06/14/2019 Ms. Montejo is examined at bedside in the progressive care unit (PCU) and states she is feeling much better. She has been gradually improving since her admission. She had a few beats of V-tach overnight, however was asymptomatic and otherwise doing well. Continues to be on IV Lasix and diuresing well. Still feeling shortness of breath and fatigued on ambulation; however, this appears to be her baseline given her cardiomyopathy. She is otherwise looking forward to ambulating and going home. She reports she has had a bowel movement lately and it was normal colored, no longer having any melena. PHYSICAL EXAMINATION: Vitals: Temperature 97.8, pulse 80, respirations 16, blood pressure 113/67, MAP of 82, pulse oximetry 96% on 3 liters nasal cannula. Intake and output: 1160 in, 2950 out with a net negative of 1790. As of this morning, she has had a net negative of 1550. Her documented weight is 58.1 kilograms down from 63.8 kilograms on admission. She is resting comfortably in bed, in no acute distress, fully alert and oriented, and pleasantly conversant. Head is normocephalic, atraumatic. Neck is supple with jugular venous distention (JVD) present but improved from yesterday. Moist mucous membranes. Lungs are clear bilaterally without wheezing, rhonchi or rales. Heart rhythm is irregular but rate is controlled. She has a localized grade 2 systolic murmur in the left lower sternal border and left axilla. No clicks or gallops. Abdomen is soft, nontender with normal bowel sounds. No lower extremity edema. 2+ radial pulses. No focal deficits. LABORATORIES: WBC 3.7, hemoglobin and hematocrit 12/40.7, platelets 173. Sodium and potassium 144/3.7, BUN and creatinine 21 and 0.27, magnesium 2.2. BNP on 06/11 was [id number] ASSESSMENT/PLAN: Ms. Montejo is a 73-year-old female, well known to our office, extensive history including coronary artery disease (CAD) with myocardial infarction status post coronary artery bypass grafting (CABG) as well as percutaneous coronary intervention (PCI), ischemic cardiomyopathy with automatic implantable cardioverter-defibrillator (AICD)/biventricular pacemaker in place, hypertension, hyperlipidemia, morbid obesity status post successful gastric bypass 03/27/2013, atrial fibrillation. She has a low ejection fraction (EF) of 20-30% with moderate to severe mitral regurgitation, found to be in decompensated congestive heart failure (CHF), was admitted for a melanotic episode that has since resolved and her Xarelto was switched to Eliquis during this hospitalization. 1. Decompensated systolic CHF. She continues to diurese well and put out almost 3 liters yesterday and her weight is down by almost 5 kg from admission. Will continue IV Lasix for today and transition over to p.o. tomorrow and hopefully she can be discharged thereafter, as long as her electrolytes and renal function stay stable. She had a mild bump in her creatinine up to 1.27 from 1.13 yesterday. Will keep a close eye on that. She had a BNP elevated around 12,000 when checked on the . Will recheck it tomorrow. Continue fluid restriction as well. 2. Chronic atrial fibrillation. Rate is controlled on Zebeta 2.5 mg b.i.d. and digoxin 0.125 mg at bedtime. Chronic anticoagulation was recently switched from Xarelto to Eliquis given her melanotic episode. Continue current regimen. 3. CAD, MS with PCI & CABG. AICD biventricular pacemaker in place. 4. Ischemic cardiomyopathy. Currently stable and has no cardiac complaints. 5. Hypertension. Controlled on current regimen, continue. MTDD
--- NOTE | 2019-06-14 10:31 | IPNPDOC ---
Subjective Date Seen The patient was seen on 06/14/19. Subjective Chief Complaint/HPI GIB, CHF Events since last encounter Continues to diurese. Cardio planning on changing to po Lasix in am and monitor. Patient denies c/o today. PT to eval today in anticipation of DC home this week. Constitutional: Denies: Chills, Fever, Night Sweats Pulmonary: Reports: Dyspnea (chronic); Denies: Cough Cardiovascular: Reports: Orthopnea; Denies: Chest Pain, Palpitations, Edema Gastrointestinal: Denies: Nausea, Vomiting, Abdominal Pain, Diarrhea, Constipation Genitourinary: Denies: Dysuria, Frequency, Incontinence, Retention Psych: Reports: Mood Normal; Denies: Depression, Memory Issues Objective Physical Examination General Exam: Positive: Alert, No Acute Distress Chest Exam: Positive: Clear to auscultation; Negative: Rales, Rhonchi, Wheezing Heart Exam: Positive: Rate Normal, Regular Rhythm Abdomen Exam: Positive: Normal bowel sounds, Soft; Negative: Tenderness Extremity Exam: Negative: Edema Psych Exam: Positive: Mental status NL, Oriented x 3 Assessment /Plan Problems (1) Acute on chronic systolic (congestive) heart failure Status: Acute Response to Treatment: Improving Problem Text: 06/14/18: Continue with cardiology recommendations. 06/13/18: continues to diurese and show improvement. Dyspnea is near baseline per patient report, doubt BP would support Entresto, but should corey; therefore, + corey 12.5, check HSE EF 35% per last Echo (2) Lower GI bleed Status: Acute Response to Treatment: Improving Problem Text: Patient declined colonoscopy due to cardiac status and opting for no intervention if an adverse finding was made. Resumed Eliquis in last 48 hts. no signs of bleeding No further bleeding since admission. Hgb stable Xeralto & ASA on hold Dr. Mitchell consulted by hospitalist - He does not plan to scope her today CT showed mild regional colitis - Not currently on abx - may be viral. Order GI panel Advance diet to clears. Monitor for further bleeding Of note: Last EGD/Colonoscpy done by 2014 - Had hemorrhoids and Diverticulosis Ct abd/pelvis: 1. Mild ascites and moderate anasarca. 2. Moderate left and trace right pleural effusions. 3. Interstitial pulmonary edema. Mild patchy groundglass opacity in the lung bases, most likely due to edema. 4. Cardiomegaly and evidence of right-sided cardiac insufficiency. 5. Acute mild regional colitis. 6. Colonic diverticulosis. 7. Noncalcified 4 mm right middle lobe pulmonary nodule. Recommend comparison with any prior CT examinations that are available. If none are available, recommend followup according to Fleischner criteria. 8. Small right ventral upper abdominal wall hernia. (3) Colitis Status: Resolved Problem Text: see above (4) Pulmonary edema Status: Resolved Problem Text: see above (5) Ascites Problem Text: No known h/o cirrhosis - will need further wkup (6) Atrial fibrillation Status: Chronic Response to Treatment: Stable Problem Text: Rate controlle don Zebeta and Dig Xarelto on hold per LGI bleed (7) CAD (coronary artery disease) Status: Chronic Response to Treatment: Stable Problem Text: s/p LA and CABG and AICD ASA on hold COnt statin, CORINA/BB (8) Pulmonary nodule Status: Chronic Problem Text: will need f/u CT as outpatient Plan/VTE VTE Prophylaxis Ordered?: No VTE Exclusion Pharmacological: Active Bleeding Plan Therapy: PT VS, I&O, 24H, Fishbone Vital Signs/I&O Vital Signs Date Time Temp Pulse Resp B/P (MAP) Pulse Ox O2 Delivery O2 Flow Rate FiO2 06/14/19 09:24 80 113/67 06/14/19 08:00 97.8 16 96 Nasal Cannula 3.0 I&O- Last 24 Hours up to 6 AM 06/14/19 06:00 Intake Total 1460 ml Output Total 3135 ml Balance -1675 ml Laboratory Data 24H LABS Laboratory Tests 2 06/14/19 04:54: Immature Granulocyte % (Auto) 0.3, Neutrophils (%) (Auto) 60.7, Lymphocytes (%) (Auto) 21.8L, Monocytes (%) (Auto) 13.4H, Eosinophils (%) (Auto) 3.3H, Basophils (%) (Auto) 0.5, Neutrophils # (Auto) 2.2, Lymphocytes # (Auto) 0.8L, Monocytes # (Auto) 0.5, Eosinophils # (Auto) 0.1, Basophils # (Auto) 0.0, Nucleated Red Blood Cells % (auto) 0.0, Anion Gap 6L, Glomerular Filtration Rate 44.0, Calcium Level 9.2, Magnesium Level 2.2, Total Bilirubin 1.2H, Aspartate Amino Transf (AST/SGOT) 22, Alanine Aminotransferase (ALT/SGPT) 19, Alkaline Phosphatase 75, Total Protein 6.8, Albumin 3.4, Albumin/Globulin Ratio 1.00 CBC/BMP Laboratory Tests 06/14/19 04:54 Microbiology Microbiology 06/10/19 Gastrointestinal Tract Panel (PCR) - Final, Complete Xiao Dee [employer] Jun 14, 2019 10:31
[2019-06-14 12:00] VITALS: BP 105/69
[2019-06-14 16:00] VITALS: BP 111/69
[2019-06-14 20:00] VITALS: BP 124/70
[2019-06-14] MEDS: allopurinoL 100 MG TAB PO SCH (20:20)
[2019-06-14] MEDS: ATORVASTATIN 20 MG TAB PO SCH (20:20)
[2019-06-14] MEDS: DIGOXIN 0.125 MG TAB PO SCH (20:20)
[2019-06-15] VITALS: BP 86/56
[2019-06-15] MEDS: ACETAMINOPHEN TAB 650MG DOSE (2X325MG) PO PRN (00:07)
[2019-06-15] MEDS: FUROSEMIDE 40 MG/4 ML VIAL (J1940) IV SCH ×2 (00:08→06:23)
[2019-06-15 04:00] VITALS: BP 98/58
[2019-06-15] MEDS: LEVOTHYROXINE 112MCG TABLET (0.112MG) PO SCH (06:23)
[2019-06-15] MEDS: ONDANSETRON 4MG/2ML VIAL (J2405) IV PRN ×2 (06:23→12:56)
[2019-06-15] MEDS: SLF 3 ML SYR IV SCH (06:24)
[2019-06-15 08:00] VITALS: BP 110/68
[2019-06-15] MEDS ORDERED: TORSEMIDE 20 MG TAB PO SCH (09:00)
[2019-06-15] MEDS ORDERED: POTASSIUM CHLORIDE 10 MEQ SR TABLET PO SCH (09:00)
[2019-06-15 09:04] LABS: ALBUMIN 3.4 GM/DL (3.2-5.2); CALCIUM LEVEL 8.8 MG/DL (8.8-10.2); CREATININE FOR GFR 1.14 MG/DL (0.55-1.30); GLOMERULAR FILTRATION RATE 49.9 (>39); POTASSIUM SERUM 4.8 MEQ/L (3.5-5.1); TOTAL PROTEIN 6.4 GM/DL (6.4-8.2)
[2019-06-15] MEDS: SPIRONOLACTONE 12.5MG PER 1/2 TABLET PO SCH (09:37)
[2019-06-15] MEDS: APIXABAN 5 MG TAB (ELIQUIS) PO SCH (09:37)
[2019-06-15 09:38] VITALS: BP 110/68
[2019-06-15] MEDS: PANTOPRAZOLE 40MG TAB (PROTONIX) PO SCH (09:38)
[2019-06-15] MEDS: CYANOCOBALAMIN 500 MCG TAB PO SCH (09:38)
[2019-06-15] MEDS: BISOPROLOL FUM 2.5 MG PER 1/2TAB PO SCH (09:38)
[2019-06-15] MEDS ORDERED: PEPT262S PO (11:22)
[2019-06-15] MEDS ORDERED: ELIQ5TAB PO (11:22)
[2019-06-15] MEDS ORDERED: ALDA25TA2 PO (11:22)
[2019-06-15] MEDS ORDERED: KLOR10TA76 PO (11:22)
[2019-06-15] MEDS ORDERED: BISO5TAB9 PO (11:22)
[2019-06-15] MEDS ORDERED: TORS20TA2 PO (11:22)
--- NOTE | 2019-06-15 11:44 | IPN ---
DATE: 06/15/2019 Ms. Montejo is sitting at bedside in the progressive care unit (PCU). States she is feeling much better and eager to go home. She feels essentially back to her baseline. She has chronic shortness of breath and limited ambulation due to her severely weak heart. She denies any chest pain, shortness of breath, palpitations, currently in bed. Relays that she cleared physical therapy (PT) and continues to make a good amount of urine. She had mild hypotension this morning 80s over 50s, however, continuing to maintain MAP greater than 65. PHYSICAL EXAMINATION: Vitals: Temperature 98. Pulse 77, respirations 18, blood pressure 110/68m MAP 82, pulse ox 95% on room air. Input and output: 1458 in, 2360 out, net negative 902. As of this morning, she has had 1650 out thus far. Her weight is down to 58.1 kg from 63.8 on admission. She is laying comfortably in bed. No acute distress. Fully alert, and oriented times three. Neck is supple. No appreciable jugular venous distention (JVD). Moist mucous membranes. Lungs clear without any wheezes, rhonchi or rales. Equal chest rise bilaterally. Irregular heart rhythm. Rate is controlled. Localized grade 2 systolic murmur in the left sternal border and axilla. No clicks or gallops. Abdomen soft with normal bowel sounds. Nondistended. No lower extremity edema. 2+ radial pulses. Neurologically intact without any deficits. LABS: WBC 3.7, hemoglobin and hematocrit 12 and 40.7, platelets 173. Sodium and potassium 141 and 4.8. BUN and creatinine 22 and 1.14. BNP down from 12,000 on 06/11/2019 to 9000 today. ASSESSMENT/PLAN: Ms Montejo is a 73-year-old female following with our office for extensive past medical history of coronary artery disease with myocardial infarction (RI) status post percutaneous coronary intervention (PCI) and coronary artery bypass graft (CABG), ischemic cardiomyopathy with automatic implantable cardioverter defibrillator (AICD) biventricular pacemaker, morbid obesity with gastric bypass in March 2013, atrial fibrillation, hypertension, hyperlipidemia. She has a reduced ejection fraction (EF) of 20-30% with moderate to severe mitral regurgitation, came in for melanotic episode and was also found to be in decompensated congestive heart failure (CHF). During her stay thus far, Xarelto was switched over the Eliquis, which she is tolerating well. 1. Systolic congestive heart failure: She appears to be near euvolemic today. Continues to diuresis well with over 2 liters yesterday. Will switch her over from IV Lasix to by mouth Torsemide 60 mg daily. Primary team has also started her on spironolactone 12.5 mg daily. Continue Zebeta. Her BNP is improved from 12,000 to about 9000 today. 2. Chronic atrial fibrillation: Rate controlled on Zebeta and digoxin tolerating well. No events on telemetry. She will require long-term anticoagulation during her stay was switched from Xarelto to Eliquis, which she is tolerating well. May be discharged on this. 3. Coronary artery disease/myocardial infarction with percutaneous coronary intervention and coronary artery bypass graft ,automatic implantable cardioverter defibrillator (AICD) biventricular pacemaker in place. 4. Ischemic cardiomyopathy: Pacemaker defibrillator in place. 5. Hypertension: She had a brief episode of hypotension this morning, however, improved thereafter. She was asymptomatic and continues to maintain her maps. Ms. Montejo is overall doing well and from a cardiac standpoint, may be discharged home to followup with Dr. Moon in the clinic next week. She should continue fluid restriction and checking daily weights at home as well as her blood pressure.
--- NOTE | 2019-06-15 17:55 | DSES ---
DATE OF ADMISSION: 06/09/2019 DATE OF DISCHARGE: 06/15/2019 PRIMARY CARE PROVIDER: Dr. Liu Vallecillo NET SQL DEVELOPER: Dr. Kristine Moon ATTENDING PHYSICIAN: Dr. 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 Patient was noted to have a heme-positive stool and some mild anemia with CT abdomen and pelvis positive for colitis. Patient was subsequently admitted to the medical service. HOSPITAL COURSE: The patient is status post consultation with Dr. Mitchell. Between patient and Dr. Mitchell, they opted out of colonoscopy secondary to patient's poor cardiac status and high risk. It was recommended conservative medical management and to proceed with colonoscopy electively on an outpatient basis pending discussion with patient's primary care and glass artist. Patient was continued on pantoprazole sodium 40 mg by mouth twice a day, placed on clear liquids, and diet was slowly advanced. She has tolerated that well. During admission, patient had a significant episode of fluid volume overload with acute on chronic congestive heart failure and atrial fibrillation. Patient was diuresed over the last several days with intravenous (IV) Lasix with transition over to by mouth torsemide with excellent result and relief. Patient is down over 5 kg in weight. Patient also was transitioned over to Eliquis secondary to a recent gastrointestinal (GI) bleed on Xarelto. She has had no further episodes of signs of GI bleeding since the transition to the Eliquis. Patient has been followed by physical therapy throughout her hospitalization and has been cleared and deemed safe for discharge. CONSULTATIONS: Dr. Manjinder King and Kristine Moon, glass artist, as well as Dr. Varun Mitchell, general surgery. IMAGING: CT abdomen and pelvis, which proved positive for mild ascites and anasarca. This has since resolved with her diuresis. Also noted to have moderate left and trace right pleural effusions, interstitial pulmonary edema, some cardiomegaly, which is not new. Patient was also noted to have a noncalcified 4 mm right middle lobe pulmonary nodule. Patient may need followup CT scan if this has not been found on any prior CT of the chest. We have none available here; however, I know patient has had imaging in other outside facilities, and we will need to obtain that by her primary care physician. PHYSICAL EXAMINATION: Today, vital signs are stable. She is afebrile. HEENT: Neck is supple without lymphadenopathy or jugular venous distention (JVD). CARDIOVASCULAR: Heart rate and rhythm are irregularly irregular. Patient is not tachycardic. PULMONARY: Lungs are clear. ABDOMEN: Soft and nontender. Bilateral lower extremities are without any edema. NEUROLOGIC: Patient is alert and oriented times three. ASSESSMENT/DISCHARGE DIAGNOSES: 1. Gastrointestinal bleed. 2. Acute on chronic congestive heart failure. 3. Colitis. 4. Pulmonary edema. 5. Ascites. 6. Atrial fibrillation. 7. Coronary artery disease. 8. Pulmonary nodule. PLAN: Patient will be discharged to home. DIET: A 2-gram sodium diet. ACTIVITY: As tolerated. Patient will followup with her primary care physician (PCP) within the next 3-7 days. She will followup with cardiology within the next 2 weeks. MEDICATIONS: - apixaban 5 mg one by mouth twice a day - Pepto-Bismol 30 mL by mouth every 4 hours as needed for diarrhea - bisoprolol fumarate 5 mg half tablet by mouth twice a day - potassium chloride 20 mEq daily - spironolactone 25 mg tablet, half tablet by mouth daily - torsemide 20 mg tablet three by mouth daily - acetaminophen 325 tablet two by mouth every 4 hours as needed for pain - allopurinol 100 mg by mouth at bedtime - atorvastatin 20 mg by mouth at bedtime - calcium carbonate 600 mg tablet two by mouth daily - vitamin D3 at 1000 international units. Patient takes 5000 international units by mouth daily - vitamin B12 at 500 mcg one by mouth daily - digoxin 125 mcg one by mouth at bedtime - ferrous sulfate 325 one by mouth daily - levothyroxine sodium 112 mcg by mouth daily - pantoprazole sodium 40 mg by mouth twice a day - MiraLax 17 grams by mouth daily Patient is discharged in stable and satisfactory condition with no further questions at time of discharge.
== END 2019-06-15 15:18 | disposition home or self-care (01) | DRG 377 ==
LOC: M ED 13:27 → M ED INP 19:57 → M PCU 19:57 → ENRESERV 06-10 05:08 → M PCU 06-10 05:28
PROVIDERS: ADMIT Internal Medicine; ATTEND Family Medicine
DX: K92.2 Gastrointestinal hemorrhage, unspecified (principal); I50.23 Acute on chronic systolic (congestive) heart failure; D62 Acute posthemorrhagic anemia; I48.20 Chronic atrial fibrillation, unspecified; I47.2 Ventricular tachycardia; R18.8 Other ascites; I11.0 Hypertensive heart disease with heart failure; K52.9 Noninfective gastroenteritis and colitis, unspecified; I25.10 Atherosclerotic heart disease of native coronary artery without angina pectoris; R91.1 Solitary pulmonary nodule; Z79.899 Other long term (current) drug therapy; I25.2 Old myocardial infarction; Z95.0 Presence of cardiac pacemaker; M79.7 Fibromyalgia; M10.9 Gout, unspecified; E78.5 Hyperlipidemia, unspecified; M35.3 Polymyalgia rheumatica; E03.9 Hypothyroidism, unspecified; Z79.82 Long term (current) use of aspirin; K57.30 Diverticulosis of large intestine without perforation or abscess without bleeding; Z88.8 Allergy status to other drugs, medicaments and biological substances; Z91.018 Allergy to other foods; E87.6 Hypokalemia; I34.0 Nonrheumatic mitral (valve) insufficiency

== ENCOUNTER → 2020-01-04 | Outpatient (REF) | payer MEDICARE ==
[~2020-01-04] MED LIST changes: +ACET1TAB55 PO; +ALDA25TA2 PO; +ALLO100T PO; +ASPI81TA26 PO; +ATOR1TAB21 PO; +BISO5TAB14 PO; +CALC600T60 PO; +DIGO0.123 PO; +ELIQ5TAB PO; +FERR325T18 PO; +HM M250T PO; +KLOR10TA76 PO; +MIRA3350 PO; +PANT40TA29 PO; +PEPT262S PO; +SYNT112T2 PO; +TORS10TA3 PO; +TORS20TA2 PO; +VALS40TA9 PO; +VITA100066 PO; +VITA500T40 PO; +XARE15TA PO
[2020-01-31 22:13] LABS: HEMOGLOBIN 12.8 g/dl (12.0-15.5); MEAN CORPUSCULAR HEMOGLOBIN 31.4 pg (27.0-33.0); MEAN CORPUSCULAR HGB CONC 31.2 g/dl (32.0-36.5); MEAN CORPUSCULAR VOLUME 100.7 fl (80.0-96.0); PLATELET COUNT, AUTOMATED 184 10^3/uL (150-450); RED BLOOD COUNT 4.07 10^6/uL (4.00-5.40)
[2020-02-12 09:03] LABS: CALCIUM LEVEL 9.1 MG/DL (8.8-10.2); CREATININE FOR GFR 1.41 MG/DL (0.55-1.30); GLOMERULAR FILTRATION RATE 38.9 (>39); POTASSIUM SERUM 4.5 MEQ/L (3.5-5.1)
== END ==
LOC: M SFHCCLAY 10:55
PROVIDERS: ATTEND Family Medicine
DX: I50.9 Heart failure, unspecified (principal); E11.9 Type 2 diabetes mellitus without complications; D64.9 Anemia, unspecified
CPT/HCPCS: 36415; 80048; 83550; 83880; 85027; G0463

== ENCOUNTER → 2020-02-21 | Outpatient (CLI) | payer MEDICARE ==
--- NOTE | 2020-02-23 17:05 | REP ---
CT CHEST WITHOUT CONTRAST HISTORY: Chest pain. History of coronary artery disease with severe ischemic cardiomyopathy, ICD in place, four week history of left upper chest discomfort above the breast and in the left axilla, unrelated to activity or position. Rule out malignancy. COMPARISON: Chest x-ray 05/03/2019. CT FINDINGS: Digital preliminary supervisor coin machine radiograph demonstrates intracardiac pacemaker, median sternotomy wires, [id number] cardiac enlargement, clips in the right upper quadrant, and abdominal wall sutures. There is no evidence of pericardial effusion. There is a small left pleural effusion layering posteriorly. There appears to be four chamber cardiac enlargement. Atherosclerotic vascular calcification is seen in the aorta and its branches, but there is no evidence of aneurysm. There are two or three normal sized pretracheal mediastinal lymph nodes. The largest of these measure 8 mm in short axis dimension. No definite adenopathy. No axillary adenopathy or mass lesion is observed. The central pulmonary arteries and veins are somewhat prominent, question pulmonary arterial hypertension. There are scattered granulomatous calcifications in the lung parenchymal bilaterally predominantly in the lower lobes. There is a noncalcified pulmonary nodule in the right middle lobe measuring 5 mm in greatest diameter. This is displayed on Page 53 of 102 in Series 201 of todays examination. No other pulmonary nodule is seen. No mass or infiltrate is appreciated. Extensive vascular calcification and some surgical changes are noted in the upper abdomen. Patient is status post bypass. There are two accessory splenules. No adrenal lesion is seen. Bone window settings show no bony destructive lesion. There is diffuse osteopenia. IMPRESSION: Cardiomegaly, small left pleural effusion. A 5-mm noncalcified pulmonary nodule in the right middle lobe. Granulomatous calcifications. Otherwise, no acute disease. Consider follow-up chest CT study in one year regarding the 5-mm nodule. MTDD
== END ==
LOC: M RAD 10:07
PROVIDERS: ATTEND Internal Medicine Cardiovascular Disease
DX: R07.89 Other chest pain (principal); I51.7 Cardiomegaly; J90 Pleural effusion, not elsewhere classified; R91.1 Solitary pulmonary nodule; I25.10 Atherosclerotic heart disease of native coronary artery without angina pectoris

== ENCOUNTER → 2020-04-30 | Outpatient (CLI) | payer MEDICARE ==
--- NOTE | 2020-04-30 15:14 | REP ---
INDICATION: J40, BRONCHITIS, I50.20 CHF W/ LEFT VENTRICULAR SYSTOLIC DYS COMPARISON: 05/03/2019 TECHNIQUE: PA and lateral. FINDINGS: Stable cardiomegaly with pacemaker and evidence for prior sternotomy and CABG again noted. Lung [place] demonstrate stable chronic changes. No consolidation, effusion, or pneumothorax. Skeletal structures demonstrate age-related changes. Evidence for prior cholecystectomy. IMPRESSION: Stable cardiomegaly and chronic changes. No acute cardiopulmonary process. <Electronically signed by Jesse Gonzalez > 04/30/20 [id number]
== END ==
LOC: M CLY 14:52
PROVIDERS: ATTEND Family Medicine
DX: J40 Bronchitis, not specified as acute or chronic (principal); I50.20 Unspecified systolic (congestive) heart failure; I51.7 Cardiomegaly; Z95.0 Presence of cardiac pacemaker

== ENCOUNTER → 2020-04-30 | Outpatient (REF) | payer MEDICARE ==
[2020-05-01 12:36] LABS: HEMATOCRIT 41.2 % (36.0-47.0); HEMOGLOBIN 12.9 g/dl (12.0-15.5); MEAN CORPUSCULAR HEMOGLOBIN 31.3 pg (27.0-33.0); MEAN CORPUSCULAR HGB CONC 31.3 g/dl (32.0-36.5); PLATELET COUNT, AUTOMATED 216 10^3/uL (150-450); RED BLOOD COUNT 4.12 10^6/uL (4.00-5.40); WHITE BLOOD COUNT 4.3 10^3/uL (4.0-10.0)
[2020-05-01 13:09] LABS: ALBUMIN 3.6 GM/DL (3.2-5.2); BILIRUBIN,TOTAL 0.8 MG/DL (0.2-1.0); CALCIUM LEVEL 9.4 MG/DL (8.8-10.2); CREATININE FOR GFR 1.27 MG/DL (0.55-1.30); FREE T4 1.9 NG/DL (0.76-1.46); GLOMERULAR FILTRATION RATE 43.9 (>39); POTASSIUM SERUM 5.4 MEQ/L (3.5-5.1); THYROID STIMULATING HORMONE 0.07 uIU/ML (0.358-3.740); TOTAL PROTEIN 6.8 GM/DL (6.4-8.2)
== END ==
LOC: M SFHCCLAY 14:43
PROVIDERS: ATTEND Family Medicine
DX: J40 Bronchitis, not specified as acute or chronic (principal); I50.20 Unspecified systolic (congestive) heart failure; E03.9 Hypothyroidism, unspecified; Z79.01 Long term (current) use of anticoagulants

== ENCOUNTER → 2020-09-25 | Outpatient (REF) | payer MEDICARE ==
[2020-09-25 16:29] LABS: BASO # 0.1 10^3/uL (0.0-0.2); BASO % 0.9 % (0.0-1.0); EOS # 0.1 10^3/uL (0.0-0.5); EOS % 1.8 % (0.0-3.0); HEMATOCRIT 37.8 % (36.0-47.0); HEMOGLOBIN 12.3 g/dl (12.0-15.5); LYMPH # 1.2 10^3/uL (1.5-5.0); LYMPH % 21.5 % (24.0-44.0); MEAN CORPUSCULAR HEMOGLOBIN 33.1 pg (27.0-33.0); MEAN CORPUSCULAR HGB CONC 32.5 g/dl (32.0-36.5); MEAN CORPUSCULAR VOLUME 101.6 fl (80.0-96.0); MONO # 0.7 10^3/uL (0.0-0.8); MONO % 12.2 % (2.0-8.0); NEUTROPHILS # 3.5 10^3/uL (1.5-8.5); NEUTROPHILS % 63.2 % (36.0-66.0); PLATELET COUNT, AUTOMATED 209 10^3/uL (150-450); RED BLOOD COUNT 3.72 10^6/uL (4.00-5.40); WHITE BLOOD COUNT 5.6 10^3/uL (4.0-10.0)
[2020-09-25 16:56] LABS: ALBUMIN 4.1 GM/DL (3.2-5.2); ALT/SGPT 29 U/L (12-78); BILIRUBIN,TOTAL 0.9 MG/DL (0.2-1.0); BLOOD UREA NITROGEN 51 MG/DL (7-18); CALCIUM LEVEL 9.4 MG/DL (8.8-10.2); CARBON DIOXIDE LEVEL 26 MEQ/L (21-32); CHLORIDE LEVEL 102 MEQ/L (98-107); CREATININE FOR GFR 1.17 MG/DL (0.55-1.30); GLOMERULAR FILTRATION RATE 48.1 (>39); GLUCOSE, FASTING 178 MG/DL (70-100); POTASSIUM SERUM 4.5 MEQ/L (3.5-5.1); SODIUM LEVEL 135 MEQ/L (136-145); THYROID STIMULATING HORMONE 0.246 uIU/ML (0.358-3.740); TOTAL PROTEIN 7.2 GM/DL (6.4-8.2)
[2020-09-25 17:17] LABS: HEMOGLOBIN A1c 6.6 %
[2020-09-26 07:18] LABS: LDH LACTATE DEHYDROGENASE 141 U/L (84-246)
[2020-09-26 10:39] LABS: FOLATE 15.1 NG/ML; VITAMIN B12 LEVEL > 2000 PG/ML
== END ==
LOC: M SFHCCLAY 13:57
PROVIDERS: ATTEND Family Medicine
DX: M35.00 Sjogren syndrome, unspecified (principal); I48.11 Longstanding persistent atrial fibrillation; E11.9 Type 2 diabetes mellitus without complications
CPT/HCPCS: 80053; 82607; 82746; 83036; 83615; 84439; 84443; 85025; 85046; G0463

== ENCOUNTER → 2020-12-25 | Outpatient (REF) | payer MEDICARE ==
[2020-12-26 13:04] LABS: HEMATOCRIT 33.6 % (36.0-47.0); MEAN CORPUSCULAR HEMOGLOBIN 33.4 pg (27.0-33.0); MEAN CORPUSCULAR HGB CONC 32.7 g/dl (32.0-36.5); MEAN CORPUSCULAR VOLUME 102.1 fl (80.0-96.0); PLATELET COUNT, AUTOMATED 187 10^3/uL (150-450); RED BLOOD COUNT 3.29 10^6/uL (4.00-5.40); WHITE BLOOD COUNT 5.6 10^3/uL (4.0-10.0)
[2020-12-26 13:49] LABS: CREATININE FOR GFR 1.31 MG/DL (0.55-1.30); GLOMERULAR FILTRATION RATE 42.3 (>39)
[2020-12-26 13:50] LABS: CALCIUM LEVEL 8.8 MG/DL (8.8-10.2); DIGOXIN LEVEL 1.4 NG/ML (0.5-2.0)
== END ==
LOC: M LABDRAWC 11:45
PROVIDERS: ATTEND Internal Medicine Cardiovascular Disease
DX: I50.22 Chronic systolic (congestive) heart failure (principal); I25.10 Atherosclerotic heart disease of native coronary artery without angina pectoris

== ENCOUNTER → 2020-12-25 | Outpatient (REF) | payer MEDICARE ==
[2020-12-26 13:46] LABS: FREE T4 1.24 NG/DL (0.76-1.46); THYROID STIMULATING HORMONE 0.087 uIU/ML (0.358-3.740)
[2020-12-26 14:01] LABS: HEMOGLOBIN A1c 7.1 %
== END ==
LOC: M SFHCCLAY 14:12
PROVIDERS: ATTEND Family Medicine
DX: E03.9 Hypothyroidism, unspecified (principal); E11.9 Type 2 diabetes mellitus without complications; I50.22 Chronic systolic (congestive) heart failure; I25.10 Atherosclerotic heart disease of native coronary artery without angina pectoris
CPT/HCPCS: 36415; 80048; 80162; 83036; 83880; 84439; 84443; 85027; G0463

== ENCOUNTER → 2021-01-30 | Outpatient (REF) | payer MEDICARE ==
[2021-01-30 15:50] LABS: HEMATOCRIT 38.2 % (36.0-47.0); HEMOGLOBIN 12.4 g/dl (12.0-15.5); MEAN CORPUSCULAR HEMOGLOBIN 33.1 pg (27.0-33.0); MEAN CORPUSCULAR HGB CONC 32.5 g/dl (32.0-36.5); MEAN CORPUSCULAR VOLUME 101.9 fl (80.0-96.0); PLATELET COUNT, AUTOMATED 221 10^3/uL (150-450); RED BLOOD COUNT 3.75 10^6/uL (4.00-5.40); WHITE BLOOD COUNT 6.3 10^3/uL (4.0-10.0)
[2021-01-30 16:27] LABS: CALCIUM LEVEL 9.3 MG/DL (8.8-10.2); CREATININE FOR GFR 1.19 MG/DL (0.55-1.30); GLOMERULAR FILTRATION RATE 47.2 (>39); POTASSIUM SERUM 4.8 MEQ/L (3.5-5.1); THYROID STIMULATING HORMONE 0.505 uIU/ML (0.358-3.740)
== END ==
LOC: M SFHCCLAY 12:07
PROVIDERS: ATTEND Family Medicine
DX: I50.20 Unspecified systolic (congestive) heart failure (principal); E11.9 Type 2 diabetes mellitus without complications